=== PATIENT | female | born 1945 | race Caucasian/White ===

== ENCOUNTER → 2016-11-24 | Outpatient (CLI) | payer OTHER, MEDICARE | LOC: MOB LAB 11:57 | PROVIDERS: ATTEND Physician Assistant | DX: J02.9 Acute pharyngitis, unspecified (principal); F17.210 Nicotine dependence, cigarettes, uncomplicated | CPT/HCPCS: 87880; 99213; G0463 ==

== ENCOUNTER → 2016-12-15 | Outpatient (CLI) | payer OTHER, MEDICARE ==
[2016-12-15 09:04] LABS: LDL CHOLESTEROL,CALCULATED 131.4 mg/dL
[2016-12-15 09:23] LABS: ASPARTATE AMINO TRANSFERASE 21 IU/L (8-39); BILIRUBIN,TOTAL 0.5 mg/dL (0.3-1.2); BLOOD UREA NITROGEN 18 mg/dL (7-22); CALCIUM 9.6 mg/dL (8.7-10.7); CHLORIDE 101 meq/L (98-112); CREATININE 0.9 mg/dL (0.50-1.20); EST GLOMERULAR FILTRATION > 60 (>60 ml/min/1.73m(2)); GLUCOSE 111 mg/dL (78-110); POTASSIUM 4.9 meq/L (3.8-5.2); SODIUM 139 meq/L (135-145); TOTAL PROTEIN 6.9 g/dL (6.1-8.0)
== END ==
LOC: LAB 08:20
PROVIDERS: ATTEND Internal Medicine
DX: E78.5 Hyperlipidemia, unspecified (principal); I10 Essential (primary) hypertension; I25.10 Atherosclerotic heart disease of native coronary artery without angina pectoris; F17.210 Nicotine dependence, cigarettes, uncomplicated
CPT/HCPCS: 36415; 80053; 80061; 82550; 99214

== ENCOUNTER → 2017-06-14 | Outpatient (CLI) | payer OTHER, MEDICARE ==
[2017-06-14 08:55] LABS: BLOOD UREA NITROGEN 17 mg/dL (7-22); BUN/CREATININE RATIO 18.88 (6-20); CALCIUM 9.3 mg/dL (8.7-10.7); CHOL/HDL RATIO 3.32 RATIO (0-4.0); EST GLOMERULAR FILTRATION > 60 (>60 ml/min/1.73m(2)); HDL CHOLESTEROL 50 mg/dL (40-150); SERUM ALBUMIN 4.2 g/dL (3.5-4.8); SERUM CHOLESTEROL 166 mg/dL (120-200)
== END ==
LOC: LAB 08:05
PROVIDERS: ATTEND Internal Medicine
DX: E78.5 Hyperlipidemia, unspecified (principal); J43.2 Centrilobular emphysema; J45.909 Unspecified asthma, uncomplicated; R68.3 Clubbing of fingers; Z23 Encounter for immunization; F17.219 Nicotine dependence, cigarettes, with unspecified nicotine-induced disorders
CPT/HCPCS: 36415; 80053; 80061; 82550; 90732; 99214; G0463

== ENCOUNTER 2017-09-29 09:57 | Inpatient (IN) ==
[2017-09-29] MEDS ORDERED: ALBUTEROL SULFATE 2.5 MG/3 ML NEB ONE ×2 (10:08→10:21)
[2017-09-29] MEDS ORDERED: ONDANSETRON 4 MG/2 ML VIAL IVP ONE (10:10)
[2017-09-29] MEDS ORDERED: Sodium Chloride 0.9% 1,000 ML PRIMARY IV ONE (10:10)
[2017-09-29] MEDS ORDERED: KETOROLAC 15 MG/1 ML VIAL IVP ONE (10:10)
--- NOTE | 2017-09-29 10:18 | PDOC ---
Dyspnea HPI - General Chief Complaint: Dyspnea Stated Complaint: short of breath Date Seen by Provider: 09/29/17 Time Seen by Provider: 10:14 Source: POSITIVE: Patient Exam Limitations: POSITIVE: No limitations Treatment Prior to Arrival: REPORTS: Oxygen, Albuterol Neb Treatment Nurse's Notes Reviewed & Considered: Yes EMS Report Reviewed & Considered: Verbal - History of Present Illness Initial Comments: 72-year-old female complaining of shortness of breath and dizziness. Patient with cough, shortness of breath, dizziness, and headache. Her symptoms been ongoing since and his significantly gotten worse today. She presented to the medical office building where an EKG was done which showed ST depressions and she was sent here for further evaluation. While in route she received a DuoNeb nebulizer treatment. Her headache, she describes as the worst she's ever had, as though her head was in a vice radiating from the brow to her occiput. She denies sore throat, she does have a cough and shortness of breath. She denies any chest pain, no nausea vomiting or diarrhea, however she did have posttussive vomiting yesterday. She denies any hematuria or dysuria, no rashes. Body Location Affected: REPORTS: Head, Chest Timing: REPORTS: Constant Duration: Unknown Severity: Severe Quality: REPORTS: "Pain", Sharpness Initiating Event: REPORTS: Upper Respiratory Illness Context: REPORTS: Activity Exacerbated By: REPORTS: Coughing Associated Symptoms: REPORTS: Painful Breathing, Ankle Swelling Similar Symptoms Previously: Yes Recently seen/treated/hospitalized: Yes Any Prior Injuries Related to Current Complaint?: No - Patient Home Medications Home Medications: Home Medications Aspirin [Baby Aspirin] 81 mg PO DAILY 03/05/12 Cholecalciferol [Vitamin D] 1,000 unit PO QD #30 tab 01/16/14 Calcium Carbonate/Vitamin D3 [Calcium 600-Vit D3 200 Tablet] 1 ea PO BID #0 tab 05/23/14 B1/B2/Niacin/B12/Protease [B-Complex With B-12 Tablet] 1 ea PO QD tab 12/14/15 Oxybutynin Chloride 1 tab PO BID #180 tab 12/15/16 Metoprolol Tartrate 0.5 tab PO BID #180 tab 06/14/17 Rosuvastatin Calcium 1 tab PO QPM #90 tab 06/14/17 losartan 25 mg tablet 25 mg PO QD #90 tab 08/22/17 ipratropium-albuterol 0.5 mg-3 mg(2.5 mg base)/3 mL nebulization soln 3 ml INH ONCE #1 ml 09/29/17 - Patient Allergies Allergies/Adverse Reactions: Allergies 3 Allergy/AdvReac Type Severity Reaction Status Date / Time Penicillins Allergy HIVES Verified 09/29/17 10:11 Past Medical History - heen HEENT History: Cataracts Cardiovascular History: Previous TX Additional Cardiovasular History: STENTS X3 Respiratory History: Asthma, Pneumonia Gastrointestinal History: Other (please comment) Additional Gastrointestinal History: occasional diarrhea/nausea/vomiting approx q 2-3 mo Genitourinary History: Denies History Endocrine History: Denies History Musculoskeletal History: Denies History Prosthesis or Implant: No Neurological History: Denies History Blood Disorders: Denies History Psychiatric History: Denies History History of Sexually Transmitted Diseases: No Cancer History: Denies History History of MDRO: No History of Other Communicable Diseases: No Alcohol Use: Rarely In the Past 12 Months, Have Used or Abuse Any Substance: None Previous Surgical History: No Type / Date of Surgery: HYSTERECTOMY, CARDIAC STENTS X3 Anesthesia Reactions: No Malignant Hyperthermia: No Significant Family History: No pertinent family hx ROS - Limitations ROS Limitations: No Limitations Constitution: REPORTS: Denies Symptoms Cardiovascular: REPORTS: Denies Cardiac Symptoms Respiratory: REPORTS: Cough Non Productive, Hurts To Breathe, Shortness Of Breath Neurological: REPORTS: Headache Gastrointestinal: REPORTS: Nausea Endocrine: REPORTS: Denies Symptoms Musculoskeletal: REPORTS: Denies MS Symptoms Genitourinary: REPORTS: Denies Symptoms Eyes: REPORTS: Denies Symptoms ENT: REPORTS: Denies Symptoms Lympathic: REPORTS: Denies Lympathic Symptoms Immunologic: POSITIVE: Denies Symptoms Psychiatric: POSITIVE: Denies Psych Symptoms Dyspnea Physical Exam - General Appearance General Appearance: REPORTS: Alert, Cooperative, No Evidence of Trauma, Moderate Distress - HEENT HEENT: POSITIVE: Head Inspection Nml, Eyes Inspection Nml, Ears Inspection Nml, Nose Inspection Nml, Oral/Dental Inspect. Nml, Pharynx Inspect. Nml, PERRL, EOMI - Neck Neck: REPORTS: Normal Inspection - Respiratory Respiratory: REPORTS: No Pleuritic Chest Pain, Respiratory Distress, Wheezes, Prolonged Expirations, Dull on Percussion, Decreased Air Movement - Cardiovascular Cardiovascular: REPORTS: Regular Rate and Rhythm, Heart Sounds Normal, Equal Pulses, Strong Pulses, No Murmur, No Gallop, No Friction Rub, No JVD Peripheral Pulses: Radial (R): 3+, Radial (L): 3+ - Abdomen Abdomen: Soft: (All Quadrants), Normal Bowel Sounds: (All Quadrants), Denies Tenderness: (All Quadrants), No Splenomegaly: (All Quadrants), No Hepatomegaly: (All Quadrants), No Guarding: (All Quadrants), No Rebound: (All Quadrants), No Palpable Pulse: (All Quadrants), No Palpabale Mass: (All Quadrants), No Distention: (All Quadrants), No Rigidity: (All Quadrants) - Skin Skin: REPORTS: Intact, Normal For Race, Warm, Dry, No Rash - Extremities Extremity: Non-Tender: (All Extremities), Normal ROM: (All Extremities), Normal Inspection: (All Extremities), Pelvis Stable: (All Extremities) - Neurological / Psychological Neurological: POSITIVE: Oriented X3, Motor Normal, Sensation Normal Dyspnea Progress - Results Reviewed by me Xrays/CTs/US Reviewed by me: Yes Discussed with Radiologist: Yes Lab Results Reviewed by Me: Yes - Patient's Progress Re-Examine Time: 12:23 Status: POSITIVE: Improved Air Movement: POSITIVE: Fair Quality Measure Initiative: CP/AMI: POSITIVE: EKG - Consult Consult (If Yes, Name of Consulting MD & Time Called): Yes (Dr. Gomez, 12:20) Consulting MD will see pt:: POSITIVE: [facility] [place] Admit Counseled: POSITIVE: Patient, Family, RE: Lab Results, RE: Radiology Results, RE : DX Patient Care Time - Estimated PCT Patient Care Time (In Minutes): 30 Vital Signs - Recent Vital Signs Vital Signs: Vital Signs (Last 8 hours) Temp Pulse Pulse Resp BP Pulse Ox 09/29/17 10:38 97 22 93 09/29/17 10:37 96 22 93 09/29/17 09:58 97.4 F 68 18 144/66 90 - VS Reviewed Vital Signs Reviewed: Yes Discharge Clinical Impression: Bronchitis, Hypoxia, COPD exacerbation Discharge Disposition: Admit to Observation Condition: Stable Follow Up With: NONE,NONE [Primary Care Provider] -
[2017-09-29 10:57] LABS: MAGNESIUM 1.8 mg/dL (1.6-2.4)
[2017-09-29 11:03] LABS: VENOUS PH 7.42 (7.32-7.42)
[2017-09-29] MEDS ORDERED: FUROSEMIDE 10 MG/1 ML - 4 ML IVP ONE (11:50)
--- NOTE | 2017-09-29 12:03 | DI ---
CT HEAD SCAN WITHOUT IV CONTRAST, 09/29/2017 10:19 AM : Clinical History: Worst headache. Previous Exam: None at this facility. Scans are obtained from the foramen magnum to the vertex without IV contrast. The 4th, 3rd, and lateral ventricles are of normal size, shape, position, and contour for the patient 's age. There is no evidence of a subarachnoid hemorrhage or intraparenchymal hemorrhage. No bland in farct is identified. There is mild cerebral atrophy. There are no extracerebral mantles or shift of t he midline structures. Bone window evaluation is normal. The paranasal sinuses are normal. READIN. Normal non contrast CT head scan. 2. No definite subarachnoid hemorrhage is identified, but if a subarachnoid hemorrhage is suspected clinically, then a lumbar puncture is recommended. 3. Mild cerebral atrophy.
--- NOTE | 2017-09-29 12:11 | DI ---
PA /LATERAL CHEST X-RAY, 09/29/2017 10:10 AM : Clinical History: Shortness of breath. Cough. Previous Exam: 02/05/2015. There is no acute soft tissue or bony abnormality. Heart size is normal. No acute infiltrate or effus ion is present, but there is a chronic interstitial process present manifested by a reticulonodular p attern. There is "tram tracking" consistent with chronic bronchitis or bronchiectasis and interstitia l changes are more prevalent in both lower lung bases and therefore chronic aspiration pneumonitis ca nnot entirely be excluded. The soft tissues in the region of the location of the azygos vein or azygo s node is more prominent than before and adenopathy cannot be excluded. There is a roughly 10 mm dens ity overlying the right eighth rib posteriorly and the fifth rib anteriorly toward the lateral aspect of the chest. This density is not seen on the lateral film and it either represents a summation sam fact or a nodule. Readin. There is a chronic interstitial disease pattern present. This is stable since the last exam. 2. This patient has evidence of chronic bronchitis or bronchiectasis and with the increased intersti tial changes in both lung bases, chronic aspiration pneumonitis cannot be excluded. 3. There is a density on the PA film along the lateral chest wall in the mid lung field. This either represents an artifact or it may represent a true pulmonary nodule.
[2017-09-29] MEDS ORDERED: cefTRIAXone Inj 2 GM in Sodium Chloride 0.9% 100 ML IV ONE (12:22)
[2017-09-29] MEDS ORDERED: DEXAMETHASONE PF 10 MG/1 ML VIAL IVP ONE (12:22)
[2017-09-29] MEDS ORDERED: LIDOCAINE W/ SODIUM BICARB 0.5 ML SYR SUBD PRN (13:03)
[2017-09-29] MEDS ORDERED: ALBUTEROL SULFATE 2.5 MG/3 ML NEB PRN (13:03)
[2017-09-29] MEDS ORDERED: Influenza 17-18 Vaccine (6mo+) Quad 60mcg/0.5ml PF IM ONE (13:47)
[2017-09-29] MEDS: methylPREDNISolone 125 MG/2 ML VIAL IVP SCH ×2 (14:11→19:52)
[2017-09-29] MEDS: Sodium Chloride 0.9% 1,000 ML PRIMARY IV SCH ×2 (14:25→20:09)
[2017-09-29] MEDS: IPRATROPIUM/ALBUTEROL SULFATE 3 ML NEB NEB SCH ×2 (14:57→19:43)
--- NOTE | 2017-09-29 15:30 | DI ---
CT ANGIOGRAM OF THE CHEST, 09/29/2017 1:03 PM : Clinical History: Shortness of breath. Right midlung field pulmonary nodule. Previous Exam: 08/17/2015. Scans are performed from the base of the neck to the lower lung bases following IV administration of 75 mL of Isovue 300. Proprietary automated bolus tracking software was used to verify the timing of t he injection. The base of the neck and thoracic inlet are normal. There are no abnormal axillary or supraclavicular lymph nodes. There is adenopathy involving the superior mediastinal lymph nodes as well as both christine r and the subcarinal lymph nodes. The heart is normal. Coronary artery calcifications are present in the LAD and left circumflex artery. There is pulmonary arterial hypertension without evidence of pulm onary embolism or pulmonary embolism with infarction. There is no acute infiltrate or effusion. This patient has bullous emphysema with extensive chronic interstitial lung disease manifested by an exten sive amount of Radames A and Radames B lines. There is a calcified 4 mm granuloma in the right upper lo be laterally. There is a noncalcified nodule located in the right upper lobe anteriorly abutting the minor fissure and this was present before and has not changed and accounts for the density seen on th e chest x-ray. There is bronchiectasis in both lower lobes without definite evidence of chronic aspir ation pneumonitis. Both adrenal glands and the visualized portions of the liver and spleen are normal . READIN. There is no evidence of pulmonary embolism or pulmonary embolism with infarction. There is marked pulmonary arterial hypertension. 2. 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 There is mild bronchiectas is in both lower lobes without evidence of aspiration pneumonitis. 3. There are pleural-based densities in the right upper lobe abutting the minor fissure that have no t changed in 25 months indicating their benign. The largest density accounts for the nodule seen on t he chest x-ray.
--- NOTE | 2017-09-29 18:44 | PDOC ---
HPI - History of Present Illness Date and Time of Service: 09/29/2017, 1840 Chief Complaint: Shortness breath with cough History of Present Illness: This very pleasant 72-year-old female who has COPD and smokes who came in with the 2 month history of a cough with increasing shortness breath. The cough is intermittently been productive. She's never had a fever. She has had some chills. She states that she has not been able to smoke over the last 2 days but typically smokes about a pack to 2 packs per day. She has been to the clinic a couple times and was treated with antibiotics and steroids on one occasion and then steroids on another. Intermittently, things seem to get better but they've always persisted back to her worse. She does have some exposures to younger children, but she states that they've all been vaccinated in terms of her grandkids. She had the flu shot today, and has had Pneumovax within the last 12 months. Given the persistence of the cough, worsening shortness breath, the patient came in for evaluation. She was found to be hypoxic and placed on oxygen. She is not normally on oxygen. I did a CT scan which also shows bronchiectasis, no evidence of pulmonary emboli, and what appears to be pulmonary fibrosis. The patient was unaware of these diagnoses ceased. The patient went into the urgent care today and was sent over to the emergency room for further evaluation. She had a CBC and basic metabolic panel that were drawn there. Past Medical History Medical History: Hypertension, [place] in 2004, and hyperlipidemia, stress incontinence Surgical History: Bladder sling in 2007, colonoscopy in 2007, stents x3, hysterectomy, tonsillectomy, tubal ligation Family History: Reviewed an Not Pertinent Pertinent Family History: Father of emphysema and mother of congestive heart failure Past Social History: Smokes one to 2 packs per day, , has children that are described as healthy although her son does have diabetes. 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 Tobacco Use: Current Every Day Smoker Do you dip or chew tobacco: No In the Past 12 Months, Have Used or Abuse Any of the Following Substance: None Alcohol Use: None Medication / Allergies Home Medications: Home Medications Medication Instructions Recorded Confirmed Type Aspirin [Baby Aspirin] 81 mg PO DAILY 03/05/12 09/29/17 History Cholecalciferol [Vitamin D] 1,000 unit PO QD #30 tab 01/16/14 09/29/17 History Calcium Carbonate/Vitamin D3 1 ea PO BID #0 tab 05/23/14 09/29/17 Rx [Calcium 600-Vit D3 200 Tablet] B1/B2/Niacin/B12/Protease 1 ea PO QD tab 12/14/15 09/29/17 History [B-Complex With B-12 Tablet] Oxybutynin Chloride 1 tab PO BID #180 tab 12/15/16 09/29/17 Rx Metoprolol Tartrate 0.5 tab PO BID #180 tab 06/14/17 09/29/17 Rx Rosuvastatin Calcium 1 tab PO QPM #90 tab 06/14/17 09/29/17 Rx losartan 25 mg tablet 25 mg PO QD #90 tab 08/22/17 09/29/17 Rx ipratropium-albuterol 0.5 mg-3 3 ml INH ONCE #1 ml 09/29/17 09/29/17 Clinic mg(2.5 mg base)/3 mL nebulization soln Allergies/Adverse Reactions: Allergies 3 Allergy/AdvReac Type Severity Reaction Status Date / Time Penicillins Allergy HIVES Verified 09/29/17 10:11 Review of Systems - Review of Systems All Systems: Reviewed & No Additional Complaints Except as Stated (I did a 12 point review of systems and it is negative other than that discussed in the history of present illness. And that noted below.) - Genitourinary Genitourinary: REPORTS: Incontinence (Chronic urinary incontinence.) Exam - Vitals Vital Signs: Vital Signs Temperature 97 F Temperature Source Temporal Artery Scan Pulse Rate [Pulse Oximeter] 72 Pulse Rate 75 Respiratory Rate 22 Blood Pressure [Left Arm] 139/68 Blood Pressure 139/60 Pulse Ox 95 Oxygen Flow Rate 4 Oxygen Delivery Method Nasal Cannula Height 5 ft 2 in Weight 177 lb - General General Appearance: No Acute Distress, Cooperative Additional General Exam Details: Frequent dry cough on exam. - Head Head Exam: Normal Inspection, Normocephalic, Atraumatic - Eye Eye Exam: POSITIVE: No Scleral Icterus - ENT ENT Exam: POSITIVE: Mucous Membranes Moist - Neck Neck Exam: Normal Inspection, No Tenderness, No Lymphadenopathy, No Thyromegaly , JVP is not Raised - Respiratory Respiratory Exam: POSITIVE: Breathing Non Labored, Normal to Percussion and Palpation, Crackles (In the bases bilaterally), Coarse Breath Sounds Additional Respiratory Exam Details: Significant cough on exam as mentioned above - Cardiovascular Cardiovascular Exam: POSITIVE: RRR, No Murmur, No Clicks, No Gallops, No Rubs, No JVD - GI/Abdominal GI/Abdominal Exam: POSITIVE: Normal Bowel Sounds, Non Tender, Non Distended, Soft - Rectal Rectal Exam: POSITIVE: Deferred - External Exam: POSITIVE: Deferred Exam: POSITIVE: Deferred - Extremities Extremities Exam: POSITIVE: No Edema Present, No Cyanosis Present - Back Back Exam: POSITIVE: Normal Inspection, No CVA Tenderness - Neurological Neurological Exam: POSITIVE: Alert, Oriented x 3, No Facial Droop, Speech Intact / Clear, Moves All Extremities Equally Results - Labs Additional Lab Results: Laboratory Results 09/29/17 09/29/17 09/29/17 Range/Units 10:30 10:30 10:37 D-Dimer 0.47 (0.00-0.59) mg/L VBG pH 7.42 (7.32-7.42) VBG pCO2 42 L (45-55) mmHg VBG HCO3 27 H (22-26) mmol/L VBG Base Excess 3 H (-2-2) MMOL/L Lactic Acid 1.4 (0.70-2.10) MMOL/L Magnesium 1.8 (1.6-2.4) mg/dL C-Reactive Protein 4.9 H (0.0-0.9) mg/dL I reviewed the CBC and a basic metabolic panel from the lab for the clinic visit earlier today. Assessment and Plan - Patient Problems (1) COPD exacerbation Current Visit: Yes Status: Acute Code(s): J44.1 - Chronic obstructive pulmonary disease with (acute) exacerbation (2) Pulmonary fibrosis Current Visit: Yes Status: Acute Code(s): J84.10 - Pulmonary fibrosis, unspecified (3) Bronchiectasis Current Visit: Yes Status: Acute Code(s): J47.9 - Bronchiectasis, uncomplicated Qualifiers: Bronchiectasis type: with acute exacerbation Qualified Code(s): J47.1 - Bronchiectasis with (acute) exacerbation (4) Coronary artery disease Current Visit: Yes Status: Acute Code(s): I25.10 - Atherosclerotic heart disease of [place] coronary artery without angina pectoris Qualifiers: Coronary Disease-Associated Artery/Lesion type: [place] artery [place] vs. transplanted heart: [place] heart Associated angina: without angina Qualified Code(s): I25.10 - Atherosclerotic heart disease of [place] coronary artery without angina pectoris (5) Tobacco abuse Current Visit: Yes Status: Acute Code(s): Z72.0 - Tobacco use (6) Urinary incontinence Current Visit: Yes Status: Acute Code(s): R32 - Unspecified urinary incontinence Qualifiers: Urinary Incontinence type: unspecified incontinence Qualified Code(s): R32 - Unspecified urinary incontinence (7) Hypercholesterolemia Current Visit: Yes Status: Acute Code(s): E78.00 - Pure hypercholesterolemia , unspecified - Assessment / Plan Additional Assessment/Plan Details: Admit the patient. IV antibiotics/steroids/breathing therapies/oxygen Benadryl ahead and check for aspergillosis as well as possible pertussis. The patient states that her last Tdap within the last 6 years. Check labs tomorrow. Monitor for any arrhythmias over the first 24 hours at least. IV fluids. I think given the bronchiectasis, I think the patient would benefit from proton pump inhibitor and I'll put that on board as well. Smoking cessation. I spent a significant amount of time discussing and counseling on smoking cessation and options for that. Full code. This with the patient. She does not want any long-term extraneous ventilatory care or care above and beyond normal means. She does want an attempt at her heart beating again should stop. This was discussed with the patient with her sister at bedside as well. Patient needs a pulmonology consultation probably with [facility] hospital stay. Plan above discussed with patient and she agreed
[2017-09-29] MEDS: GUAIFENESIN/CODEINE SYRUP 100 MG/ 10 MG/ 5 ML UD CUP PO PRN (19:52)
[2017-09-29] MEDS: Pantoprazole Inj 40 MG in Normal Saline Flush 10 ML IVP SCH (19:52)
[2017-09-29] MEDS: BENZONATATE 100 MG CAPSULE PO SCH (20:04)
[2017-09-29] MEDS: Metoprolol TARTRATE Tab 50 MG TAB PO SCH (20:04)
[2017-09-29] MEDS: Rosuvastatin Tab 20 MG TAB PO SCH (20:05)
[2017-09-30] MEDS: methylPREDNISolone 125 MG/2 ML VIAL IVP SCH ×4 (01:21→18:47)
[2017-09-30] MEDS: Sodium Chloride 0.9% 1,000 ML PRIMARY IV SCH ×3 (04:42→12:54)
[2017-09-30] MEDS: IPRATROPIUM/ALBUTEROL SULFATE 3 ML NEB NEB SCH ×4 (06:03→19:35)
[2017-09-30] MEDS: Pantoprazole Inj 40 MG in Normal Saline Flush 10 ML IVP SCH ×2 (06:40→18:46)
[2017-09-30] MEDS: NORMAL SALINE 10 ML SYRINGE FLUSH IVP PRN (06:41)
[2017-09-30 07:25] LABS: BLOOD UREA NITROGEN 20 mg/dL (7-22); BUN/CREATININE RATIO 28.57 (6-20)
[2017-09-30 07:53] LABS: BASOPHILS % (AUTO) 0.3 % (0-1); EOSINOPHILS % (AUTO) 0.9 % (0-8); Hematocrit [HCT] 39.1 % (37.0-47.0); LYMPHOCYTES # (AUTO) 1.66 10*3/uL; MEAN CORPUSCULAR HEMOGLOBIN 30.5 PG (27-31); MEAN CORPUSCULAR HGB CONC 33.2 g/dL (33-37); MEAN CORPUSCULAR VOLUME 92 FL (81-99); MEAN PLATELET VOLUME 7.2 FL (7.4-12.2); MONOCYTES # (AUTO) 0.41 10*3/UL (0.3-0.8); MONOCYTES % (AUTO) 3.5 % (5-15); NEUTROPHILS # (AUTO) 9.46 10*3/UL; NEUTROPHILS % (AUTO) 81.1 % (50-80); RED BLOOD COUNT 4.26 10^6/uL (4.20-5.40)
[2017-09-30 07:54] LABS: BASOPHILS # (AUTO) 0.03 10*3/UL; PLATELET MORPHOLOGY COMMENT NORMAL MORPHOLOGY (NORM); RBC MORPHOLOGY COMMENT NORMAL MORPHOLOGY (NORM); WBC MORPHOLOGY COMMENT NORMAL MORPHOLOGY (NORM)
[2017-09-30] MEDS: LOSARTAN 25 MG TABLET PO SCH (08:13)
[2017-09-30] MEDS: Oxybutynin ER Tab 5 MG TAB PO SCH ×2 (08:13→20:02)
[2017-09-30] MEDS: ASPIRIN 81 MG (BABY) CHEWABLE TABLET PO SCH (08:13)
[2017-09-30] MEDS: CHOLECALCIFEROL 1000 IU TABLET PO SCH (08:14)
[2017-09-30] MEDS: ENOXAPARIN SODIUM 40 MG/0.4 ML SYRINGE SUBCUT SCH (08:14)
[2017-09-30] MEDS: Metoprolol TARTRATE Tab 50 MG TAB PO SCH ×2 (08:14→20:02)
[2017-09-30] MEDS: BENZONATATE 100 MG CAPSULE PO SCH ×3 (08:14→20:02)
[2017-09-30] MEDS: cefTRIAXone Inj 2 GM in Sodium Chloride 0.9% 100 ML IV SCH (11:57)
[2017-09-30] MEDS ORDERED: Sodium Chloride 0.9% 100 ML IV ONE (11:57)
[2017-09-30] MEDS ORDERED: CEFTRIAXONE SODIUM 2 GM VIAL IV ONE (11:57)
[2017-09-30] MEDS ORDERED: cefTRIAXone Inj 2 GM in Sodium Chloride 0.9% 100 ML IV ONE (12:00)
--- NOTE | 2017-09-30 16:34 | PDOC(PROG) ---
Date and Time of Service: 09/30/2017,1632 Interval History: no chest pain today. cough improved some. no nausea or vomiting. still on about 4 LPM oxygen Objective : Data - Labs CBC and BMP: 09/30/17 06:11 09/30/17 06:11 Additional Lab Results: Laboratory Results 09/29/17 09/29/17 09/29/17 Range/Units 10:30 10:30 10:37 WBC (4.8-10.8) 10^3/uL RBC (4.20-5.40) 10^6/uL Hgb (12.0-16.0) g/dL Hct (37.0-47.0) % MCV (81-99) FL MCH (27-31) PG MCHC (33-37) g/dL RDW Coeff of [place] (11.5-14.5) % Plt Count (140-350) 10*3/uL MPV (7.4-12.2) FL Neut % (Auto) (50-80) % Lymph % (Auto) (10-50) % [place] % (Auto) (5-15) % Eos % (Auto) (0-8) % Baso % (Auto) (0-1) % Neut # (Auto) 10*3/UL Lymph # (Auto) 10*3/uL [place] # (Auto) (0.3-0.8) 10*3/UL Eos # (Auto) 10*3/UL Baso # (Auto) 10*3/UL WBC Morphology Comment (NORM) Plt Morphology Comment (NORM) RBC Morph Comment (NORM) D-Dimer 0.47 (0.00-0.59) mg/L VBG pH 7.42 (7.32-7.42) VBG pCO2 42 L (45-55) mmHg VBG HCO3 27 H (22-26) mmol/L VBG Base Excess 3 H (-2-2) MMOL/L Sodium (135-145) meq/L Potassium (3.8-5.2) meq/L Chloride (98-112) meq/L Carbon Dioxide (23-33) meq/L Anion Gap (5-20) BUN (7-22) mg/dL Creatinine (0.50-1.20) mg/dL Estimated GFR (>60 ml/min/1.73m(2)) BUN/Creatinine Ratio (6-20) Glucose (78-110) mg/dL Calculated Osmolality (267-292) mOsm/kg Lactic Acid 1.4 (0.70-2.10) MMOL/L Calcium (8.7-10.7) mg/dL Magnesium 1.8 (1.6-2.4) mg/dL C-Reactive Protein 4.9 H (0.0-0.9) mg/dL 09/30/17 09/30/17 Range/Units 06:11 06:11 WBC 11.7 H (4.8-10.8) 10^3/uL RBC 4.26 (4.20-5.40) 10^6/uL Hgb 13.0 (12.0-16.0) g/dL Hct 39.1 (37.0-47.0) % MCV 92 (81-99) FL MCH 30.5 (27-31) PG MCHC 33.2 (33-37) g/dL RDW Coeff of [place] 12.5 (11.5-14.5) % Plt Count 242 (140-350) 10*3/uL MPV 7.2 L (7.4-12.2) FL Neut % (Auto) 81.1 H (50-80) % Lymph % (Auto) 14.2 (10-50) % [place] % (Auto) 3.5 L (5-15) % Eos % (Auto) 0.9 (0-8) % Baso % (Auto) 0.3 (0-1) % Neut # (Auto) 9.46 10*3/UL Lymph # (Auto) 1.66 10*3/uL [place] # (Auto) 0.41 (0.3-0.8) 10*3/UL Eos # (Auto) 0.10 10*3/UL Baso # (Auto) 0.03 10*3/UL WBC Morphology Comment Normal morphology (NORM) Plt Morphology Comment Normal morphology (NORM) RBC Morph Comment Normal morphology (NORM) D-Dimer (0.00-0.59) mg/L VBG pH (7.32-7.42) VBG pCO2 (45-55) mmHg VBG HCO3 (22-26) mmol/L VBG Base Excess (-2-2) MMOL/L Sodium 143 (135-145) meq/L Potassium 4.2 (3.8-5.2) meq/L Chloride 104 (98-112) meq/L Carbon Dioxide 27 (23-33) meq/L Anion Gap 12 (5-20) BUN 20 (7-22) mg/dL Creatinine 0.7 (0.50-1.20) mg/dL Estimated GFR > 60 (>60 ml/min/1.73m(2)) BUN/Creatinine Ratio 28.57 H (6-20) Glucose 191 H (78-110) mg/dL Calculated Osmolality 303.0 H (267-292) mOsm/kg Lactic Acid (0.70-2.10) MMOL/L Calcium 9.0 (8.7-10.7) mg/dL Magnesium (1.6-2.4) mg/dL C-Reactive Protein (0.0-0.9) mg/dL Objective : Exam - General General Appearance: No Acute Distress, Cooperative Additional General Exam Details: Vital Signs (24 hrs) Temp Pulse Pulse Resp BP Pulse Ox 09/30/17 15:00 84 09/30/17 14:57 68 18 09/30/17 14:56 67 18 93 09/30/17 13:00 97.8 F 82 22 156/71 95 09/30/17 11:00 59 L 09/30/17 10:36 58 L 18 09/30/17 10:35 59 L 18 93 09/30/17 07:01 97.2 F 76 18 127/71 92 09/30/17 07:00 69 09/30/17 06:04 67 18 09/30/17 06:03 67 18 98 09/30/17 05:20 93 09/30/17 04:11 97.7 F 81 16 134/68 99 09/30/17 03:00 77 09/30/17 01:00 97.3 F 62 16 128/60 94 09/29/17 23:00 55 L 09/29/17 20:17 97.5 F 20 129/61 95 09/29/17 19:44 78 14 100 09/29/17 19:43 72 16 96 09/29/17 19:00 70 72 20 09/29/17 16:59 97 F 72 22 139/68 95 - Eye Eye Exam: No Scleral Icterus - ENT ENT Exam: Mucous Membranes Moist - Respiratory Respiratory Exam: Breathing Non Labored, Crackles, Wheezes, Coarse Breath Sounds - Cardiovascular Cardiovascular Exam: RRR, No Murmur, No Clicks, No Gallops, No Rubs, No JVD - GI/Abdominal GI/Abdominal Exam: Normal Bowel Sounds, Non Tender, Non Distended, Soft - Extremities Extremities Exam: No Edema Present, No Cyanosis Present - Neurological Neurological Exam: Alert, Oriented x 3, No Facial Droop, Speech Intact / Clear, Moves All Extremities Equally Assessment and Plan - Patient Problems (1) COPD exacerbation Current Visit: Yes Status: Acute Code(s): J44.1 - Chronic obstructive pulmonary disease with (acute) exacerbation (2) Pulmonary fibrosis Current Visit: Yes Status: Acute Code(s): J84.10 - Pulmonary fibrosis, unspecified (3) Bronchiectasis Current Visit: Yes Status: Acute Code(s): J47.9 - Bronchiectasis, uncomplicated Qualifiers: Bronchiectasis type: with acute exacerbation Qualified Code(s): J47.1 - Bronchiectasis with (acute) exacerbation (4) Coronary artery disease Current Visit: Yes Status: Acute Code(s): I25.10 - Atherosclerotic heart disease of [place] coronary artery without angina pectoris Qualifiers: Coronary Disease-Associated Artery/Lesion type: [place] artery [place] vs. transplanted heart: [place] heart Associated angina: without angina Qualified Code(s): I25.10 - Atherosclerotic heart disease of [place] coronary artery without angina pectoris (5) Tobacco abuse Current Visit: Yes Status: Acute Code(s): Z72.0 - Tobacco use (6) Urinary incontinence Current Visit: Yes Status: Acute Code(s): R32 - Unspecified urinary incontinence Qualifiers: Urinary Incontinence type: unspecified incontinence Qualified Code(s): R32 - Unspecified urinary incontinence (7) Hypercholesterolemia Current Visit: Yes Status: Acute Code(s): E78.00 - Pure hypercholesterolemia , unspecified - Assessment / Plan Additional Assessment/Plan Details: Complex lung issues with COPD exacerbation, bronchiectasis with infection, and pulmonary fibrosis. At this point however I think we can stop fluids and telemetry monitoring. I think the patient needs an extended course of steroids perhaps upwards of a month or longer. Antibiotics to continue IV for now, hopefully to by mouth and the next day or 2. Breathing therapies. Continue PPI the IV, and convert to by mouth in a couple days. The patient would likely benefit from a [facility] pulmonary consultation. This can be done as an outpatient. I spoke with the patient's and the patient regarding this patient's , Rick, can be reached at [phone]
[2017-09-30] MEDS: Rosuvastatin Tab 20 MG TAB PO SCH (20:02)
[2017-09-30] MEDS: GUAIFENESIN/CODEINE SYRUP 100 MG/ 10 MG/ 5 ML UD CUP PO PRN (20:03)
[2017-10-01] MEDS: methylPREDNISolone 125 MG/2 ML VIAL IVP SCH ×4 (01:02→21:28)
[2017-10-01 06:42] LABS: BLOOD UREA NITROGEN 21 mg/dL (7-22); MAGNESIUM 2.3 mg/dL (1.6-2.4)
[2017-10-01] MEDS: IPRATROPIUM/ALBUTEROL SULFATE 3 ML NEB NEB SCH ×4 (06:51→18:53)
[2017-10-01 06:57] LABS: BAND NEUTROPHILS % 0 % (0-10); BASOPHILS % (MANUAL) 0 % (0-1); EOSINOPHILS % (MANUAL) 0 % (0-8); Hematocrit [HCT] 37.9 % (37.0-47.0); Hemoglobin [HGB] 12.5 g/dL (12.0-16.0); MEAN CORPUSCULAR HEMOGLOBIN 30.5 PG (27-31); MEAN CORPUSCULAR VOLUME 92 FL (81-99); MEAN PLATELET VOLUME 7.4 FL (7.4-12.2); MONOCYTES % (MANUAL) 6 % (0-12); NEUTROPHILS % (MANUAL) 82 % (50-80); PLATELET MORPHOLOGY COMMENT NORMAL MORPHOLOGY (NORM); RBC MORPHOLOGY COMMENT NORMAL MORPHOLOGY (NORM); RED BLOOD COUNT 4.11 10^6/uL (4.20-5.40); WBC MORPHOLOGY COMMENT NORMAL MORPHOLOGY (NORM)
[2017-10-01] MEDS: NORMAL SALINE 10 ML SYRINGE FLUSH IVP PRN (07:19)
[2017-10-01] MEDS: Pantoprazole Inj 40 MG in Normal Saline Flush 10 ML IVP SCH (07:19)
[2017-10-01] MEDS: ENOXAPARIN SODIUM 40 MG/0.4 ML SYRINGE SUBCUT SCH (08:25)
[2017-10-01] MEDS: BENZONATATE 100 MG CAPSULE PO SCH ×3 (08:25→21:26)
[2017-10-01] MEDS: CHOLECALCIFEROL 1000 IU TABLET PO SCH (08:25)
[2017-10-01] MEDS: LOSARTAN 25 MG TABLET PO SCH (08:25)
[2017-10-01] MEDS: Metoprolol TARTRATE Tab 50 MG TAB PO SCH ×2 (08:25→21:25)
[2017-10-01] MEDS: ASPIRIN 81 MG (BABY) CHEWABLE TABLET PO SCH (08:25)
[2017-10-01] MEDS: Oxybutynin ER Tab 5 MG TAB PO SCH ×2 (08:25→21:26)
--- NOTE | 2017-10-01 12:04 | PDOC(PROG) ---
Date and Time of Service: 09/30/2017, 1158 Interval History: No chest pain. cough improving, but some paroxysms. no nausea or vomiting. overall, feeling better. breathing therapies really help. Objective : Data - Labs CBC and BMP: 10/01/17 06:11 10/01/17 06:11 Objective : Exam - General General Appearance: No Acute Distress, Cooperative Additional General Exam Details: Vital Signs (24 hrs) Temp Pulse Pulse Resp BP Pulse Ox 10/01/17 10:07 88 18 94 10/01/17 10:06 87 18 94 10/01/17 08:18 97.1 F 99 24 164/70 95 10/01/17 06:52 87 18 96 10/01/17 06:51 86 18 93 10/01/17 05:35 95 10/01/17 04:49 97.5 F 78 20 145/82 96 10/01/17 01:00 97.1 F 68 16 128/60 97 09/30/17 20:19 98.8 F 89 20 153/66 95 09/30/17 19:36 73 16 100 09/30/17 19:35 70 18 95 09/30/17 18:56 60 09/30/17 16:55 98.9 F 77 20 131/54 93 09/30/17 15:00 84 09/30/17 14:57 68 18 09/30/17 14:56 67 18 93 09/30/17 13:00 97.8 F 82 22 156/71 95 - Head Head Exam: Normal Inspection, Normocephalic, Atraumatic - Eye Eye Exam: No Scleral Icterus - ENT ENT Exam: Mucous Membranes Moist - Respiratory Respiratory Exam: Breathing Non Labored, Crackles, Wheezes, Coarse Breath Sounds - Cardiovascular Cardiovascular Exam: RRR, No Murmur, No Clicks, No Gallops, No Rubs, No JVD - GI/Abdominal GI/Abdominal Exam: Normal Bowel Sounds, Non Tender, Non Distended, Soft - Extremities Extremities Exam: No Clubbing Present, No Cyanosis Present, +1 Edema - Neurological Neurological Exam: Alert, Oriented x 3, No Facial Droop, Speech Intact / Clear, Moves All Extremities Equally - Psychiatric Psychiatric Exam: Normal Affect, Normal Mood Assessment and Plan - Patient Problems (1) COPD exacerbation Current Visit: Yes Status: Acute Code(s): J44.1 - Chronic obstructive pulmonary disease with (acute) exacerbation (2) Pulmonary fibrosis Current Visit: Yes Status: Acute Code(s): J84.10 - Pulmonary fibrosis, unspecified (3) Bronchiectasis Current Visit: Yes Status: Acute Code(s): J47.9 - Bronchiectasis, uncomplicated Qualifiers: Bronchiectasis type: with acute exacerbation Qualified Code(s): J47.1 - Bronchiectasis with (acute) exacerbation (4) Coronary artery disease Current Visit: Yes Status: Acute Code(s): I25.10 - Atherosclerotic heart disease of [place] coronary artery without angina pectoris Qualifiers: Coronary Disease-Associated Artery/Lesion type: [place] artery [place] vs. transplanted heart: [place] heart Associated angina: without angina Qualified Code(s): I25.10 - Atherosclerotic heart disease of [place] coronary artery without angina pectoris (5) Tobacco abuse Current Visit: Yes Status: Acute Code(s): Z72.0 - Tobacco use (6) Urinary incontinence Current Visit: Yes Status: Acute Code(s): R32 - Unspecified urinary incontinence Qualifiers: Urinary Incontinence type: unspecified incontinence Qualified Code(s): R32 - Unspecified urinary incontinence (7) Hypercholesterolemia Current Visit: Yes Status: Acute Code(s): E78.00 - Pure hypercholesterolemia , unspecified - Assessment / Plan Additional Assessment/Plan Details: continue steroids, but reduce the dose; may keep on for longer taper oxygen 24/7, at 2 LPM change antibiotics to PO change PPI to PO smoking cessation, discussed every day thus far check for influenza awaiting aspergillosis and pertussis studies possibly home tomorrow
[2017-10-01] MEDS: cefTRIAXone Inj 2 GM in Sodium Chloride 0.9% 100 ML IV SCH (12:58)
[2017-10-01] MEDS: PANTOPRAZOLE 40 MG TABLET PO SCH (17:14)
[2017-10-01] MEDS: Rosuvastatin Tab 20 MG TAB PO SCH (21:25)
[2017-10-01] MEDS: CEFUROXIME 500 MG TABLET PO SCH (21:25)
[2017-10-02] MEDS: methylPREDNISolone 125 MG/2 ML VIAL IVP SCH ×2 (01:11→08:59)
[2017-10-02 06:37] LABS: HEMOGLOBIN A1C 6.86 % (4.2-6.0)
[2017-10-02] MEDS: IPRATROPIUM/ALBUTEROL SULFATE 3 ML NEB NEB SCH ×3 (06:49→15:06)
[2017-10-02 06:52] LABS: Hematocrit [HCT] 34.7 % (37.0-47.0); Hemoglobin [HGB] 11.8 g/dL (12.0-16.0); MEAN CORPUSCULAR HGB CONC 34.1 g/dL (33-37); MEAN CORPUSCULAR VOLUME 91 FL (81-99); MEAN PLATELET VOLUME 7.3 FL (7.4-12.2); PLATELET MORPHOLOGY COMMENT NORMAL MORPHOLOGY (NORM); RBC MORPHOLOGY COMMENT NORMAL MORPHOLOGY (NORM); RED BLOOD COUNT 3.82 10^6/uL (4.20-5.40); WBC MORPHOLOGY COMMENT NORMAL MORPHOLOGY (NORM)
[2017-10-02 06:53] LABS: BAND NEUTROPHILS % 2 % (0-10); BASOPHILS % (MANUAL) 0 % (0-1); EOSINOPHILS % (MANUAL) 0 % (0-8); MONOCYTES % (MANUAL) 2 % (0-12); NEUTROPHILS % (MANUAL) 77 % (50-80)
[2017-10-02] MEDS: PANTOPRAZOLE 40 MG TABLET PO SCH (07:36)
[2017-10-02] MEDS: Metoprolol TARTRATE Tab 50 MG TAB PO SCH (08:59)
[2017-10-02] MEDS: ENOXAPARIN SODIUM 40 MG/0.4 ML SYRINGE SUBCUT SCH (08:59)
[2017-10-02] MEDS ORDERED: AZITHROMYCIN 250 MG TABLET PO SCH (09:00)
[2017-10-02] MEDS: CEFUROXIME 500 MG TABLET PO SCH (09:00)
[2017-10-02] MEDS: CHOLECALCIFEROL 1000 IU TABLET PO SCH (09:00)
[2017-10-02] MEDS: BENZONATATE 100 MG CAPSULE PO SCH (09:00)
[2017-10-02] MEDS: Oxybutynin ER Tab 5 MG TAB PO SCH (09:00)
[2017-10-02] MEDS: LOSARTAN 25 MG TABLET PO SCH (09:00)
[2017-10-02] MEDS: ASPIRIN 81 MG (BABY) CHEWABLE TABLET PO SCH (09:01)
[2017-10-02] MEDS: NORMAL SALINE 10 ML SYRINGE FLUSH IVP PRN (09:03)
[2017-10-02 11:05] VITALS: RESP 18
[2017-10-02 11:17] VITALS: BP 154/64; TEMP 97.1
--- NOTE | 2017-10-02 13:27 | DCSUMMARY ---
Hospitalization Summary Admit Date: 09/29/17 Discharge Date: 10/02/17 Primary Diagnosis:: COPD exacerbation, Secondary Diagnosis:: Pulmonary fibrosis, bronchiectasis, and new onset/ Newly diagnosed diabetes mellitus type II. Hospital Course: This very pleasant 72-year-old female who came in with severe shortness of breath over about a 2 month period of time, but worse over the last couple weeks , consistent with worsening COPD exacerbation. She was admitted for evaluation and management. She is placed on oxygen, breathing therapies were started, and she is placed on antibiotics and steroids. She seems to be tolerating therapy very well and states that she 75% better than when she first came in the hospital and feels that she can manage at home. She is placed on Ceftin and prednisone for 2 week taper. She may need to repeat this if her cough persists or worsens in the next 2 months. We've also placed her on albuterol and Advair. In terms of her workup, the CT scans revealed that she has bronchiectasis as well as pulmonary fibrosis. I think she would benefit from a workup at [facility] but I also advised her to quit smoking. We discussed smoking cessation every day during the hospital stay. In addition, we found that the patient is early diabetes with a hemoglobin A1c of 6.86. For now, give the patient dietary education and I think that should be rechecked in about 3 months to 6 months. We worked very hard at smoking cessation. Today, shortness breath is significantly improved, cough is significantly improved. No nausea or vomiting and the patient is ready to go home. Assessment and Plan: 1. As per discharge assessments noted 2. Disposition: Patient is discharged home. 3. Condition on discharge, stable and improved. 4. Diet: regular diet 5. Activities: resume normal activities, but continue to quit smoking 6. Follow-Up: 1. Dr. Madera in one week 2. 7. Medications at the Time of Discharge: Home Medications Medication Instructions Recorded Confirmed Type Aspirin [Baby Aspirin] 81 mg PO DAILY 03/05/12 09/29/17 History Cholecalciferol [Vitamin D] 1,000 unit PO QD #30 tab 01/16/14 09/29/17 History Calcium Carbonate/Vitamin D3 1 ea PO BID #0 tab 05/23/14 09/29/17 Rx [Calcium 600-Vit D3 200 Tablet] B1/B2/Niacin/B12/Protease 1 ea PO QD tab 12/14/15 09/29/17 History [B-Complex with B-12 Tablet] Oxybutynin Chloride 1 tab PO BID #180 tab 12/15/16 09/29/17 Rx Metoprolol Tartrate 0.5 tab PO BID #180 tab 06/14/17 09/29/17 Rx Rosuvastatin Calcium 1 tab PO QPM #90 tab 06/14/17 09/29/17 Rx losartan 25 mg tablet 25 mg PO QD #90 tab 08/22/17 09/29/17 Rx Albuterol [PROVENTIL HFA] 1 - 2 inh IH .Q4-6H PRN #1 inhaler 10/02/17 Rx Cefuroxime Axetil [Ceftin] 500 mg PO BID #6 tab 10/02/17 Rx Fluticasone/Salmeterol [Advair 1 ea IH BID #1 blst.w.dev 10/02/17 Rx 500-50 Diskus] Pantoprazole Sodium [Protonix] 40 mg PO BID AC #60 tab 10/02/17 Rx Prednisone 10 mg PO DAILY #30 tab 10/02/17 Rx 8. Time, care, counseling and coordination of care for this discharge is greater than 30 minutes. Exam - Vitals Vital Signs: Vital Signs Temperature 97.1 F Temperature Source Temporal Artery Scan Pulse Rate [Apical] 80 Pulse Rate [Pulse Oximeter] 65 Pulse Rate 76 Respiratory Rate 18 Blood Pressure [Left Arm] 154/64 Blood Pressure 139/60 Pulse Ox 97 Oxygen Flow Rate 2.5 Oxygen Delivery Method Nasal Cannula Height 5 ft 2 in Weight 186 lb 6.4 oz - General General Appearance: No Acute Distress, Cooperative - Eye Eye Exam: POSITIVE: No Scleral Icterus - ENT ENT Exam: POSITIVE: Mucous Membranes Moist - Respiratory Respiratory Exam: POSITIVE: Breathing Non Labored, Crackles (In bases bilaterally), Wheezes, Coarse Breath Sounds - Cardiovascular Cardiovascular Exam: POSITIVE: RRR, No Murmur, No Clicks, No Gallops, No Rubs, No JVD - GI/Abdominal GI/Abdominal Exam: POSITIVE: Normal Bowel Sounds, Non Tender, Non Distended, Soft - Extremities Extremities Exam: POSITIVE: No Cyanosis Present, Clubbing Present (In the digits ), +1 Edema - Neurological Neurological Exam: POSITIVE: Alert, Oriented x 3, No Facial Droop, Speech Intact / Clear, Moves All Extremities Equally Data Perinent Studies: Laboratory Results 09/29/17 09/29/17 09/29/17 Range/Units 10:30 10:30 10:37 WBC (4.8-10.8) 10^3/uL RBC (4.20-5.40) 10^6/uL Hgb (12.0-16.0) g/dL Hct (37.0-47.0) % MCV (81-99) FL MCH (27-31) PG MCHC (33-37) g/dL RDW Coeff of Sravani (11.5-14.5) % Plt Count (140-350) 10*3/uL MPV (7.4-12.2) FL Neut % (Auto) (50-80) % Lymph % (Auto) (10-50) % [place] % (Auto) (5-15) % Eos % (Auto) (0-8) % Baso % (Auto) (0-1) % Neut # (Auto) 10*3/UL Lymph # (Auto) 10*3/uL [place] # (Auto) (0.3-0.8) 10*3/UL Eos # (Auto) 10*3/UL Baso # (Auto) 10*3/UL Neutrophils % (Manual) (50-80) % Band Neutrophils % (0-10) % Lymphocytes % (Manual) (10-50) % Monocytes % (Manual) (0-12) % Eosinophils % (Manual) (0-8) % Basophils % (Manual) (0-1) % Metamyelocytes % Myelocytes % Promyelocytes % Blast Cells WBC Morphology Comment (NORM) Plt Morphology Comment (NORM) RBC Morph Comment (NORM) D-Dimer 0.47 (0.00-0.59) mg/L VBG pH 7.42 (7.32-7.42) VBG pCO2 42 L (45-55) mmHg VBG HCO3 27 H (22-26) mmol/L VBG Base Excess 3 H (-2-2) MMOL/L Sodium (135-145) meq/L Potassium (3.8-5.2) meq/L Chloride (98-112) meq/L Carbon Dioxide (23-33) meq/L Anion Gap (5-20) BUN (7-22) mg/dL Creatinine (0.50-1.20) mg/dL Estimated GFR (>60 ml/min/1.73m(2)) BUN/Creatinine Ratio (6-20) Glucose (78-110) mg/dL Mean Blood Glucose mg/dL Hemoglobin A1c (4.2-6.0) % Calculated Osmolality (267-292) mOsm/kg Lactic Acid 1.4 (0.70-2.10) MMOL/L Calcium (8.7-10.7) mg/dL Magnesium 1.8 (1.6-2.4) mg/dL C-Reactive Protein 4.9 H (0.0-0.9) mg/dL 09/30/17 09/30/17 10/01/17 Range/Units 06:11 06:11 06:11 WBC 11.7 H 13.8 H (4.8-10.8) 10^3/uL RBC 4.26 4.11 L (4.20-5.40) 10^6/uL Hgb 13.0 12.5 (12.0-16.0) g/dL Hct 39.1 37.9 (37.0-47.0) % MCV 92 92 (81-99) FL MCH 30.5 30.5 (27-31) PG MCHC 33.2 33.0 (33-37) g/dL RDW Coeff of Sravani 12.5 12.6 (11.5-14.5) % Plt Count 242 247 (140-350) 10*3/uL MPV 7.2 L 7.4 (7.4-12.2) FL Neut % (Auto) 81.1 H (50-80) % Lymph % (Auto) 14.2 (10-50) % [place] % (Auto) 3.5 L (5-15) % Eos % (Auto) 0.9 (0-8) % Baso % (Auto) 0.3 (0-1) % Neut # (Auto) 9.46 10*3/UL Lymph # (Auto) 1.66 10*3/uL [place] # (Auto) 0.41 (0.3-0.8) 10*3/UL Eos # (Auto) 0.10 10*3/UL Baso # (Auto) 0.03 10*3/UL Neutrophils % (Manual) 82 H (50-80) % Band Neutrophils % 0 (0-10) % Lymphocytes % (Manual) 12 (10-50) % Monocytes % (Manual) 6 (0-12) % Eosinophils % (Manual) 0 (0-8) % Basophils % (Manual) 0 (0-1) % Metamyelocytes % Not Reportable Myelocytes % Not Reportable Promyelocytes % Not Reportable Blast Cells Not Reportable WBC Morphology Comment Normal morphology Normal morphology (NORM) Plt Morphology Comment Normal morphology Normal morphology (NORM) RBC Morph Comment Normal morphology Normal morphology (NORM) D-Dimer (0.00-0.59) mg/L VBG pH (7.32-7.42) VBG pCO2 (45-55) mmHg VBG HCO3 (22-26) mmol/L VBG Base Excess (-2-2) MMOL/L Sodium 143 (135-145) meq/L Potassium 4.2 (3.8-5.2) meq/L Chloride 104 (98-112) meq/L Carbon Dioxide 27 (23-33) meq/L Anion Gap 12 (5-20) BUN 20 (7-22) mg/dL Creatinine 0.7 (0.50-1.20) mg/dL Estimated GFR > 60 (>60 ml/min/1.73m(2)) BUN/Creatinine Ratio 28.57 H (6-20) Glucose 191 H (78-110) mg/dL Mean Blood Glucose mg/dL Hemoglobin A1c (4.2-6.0) % Calculated Osmolality 303.0 H (267-292) mOsm/kg Lactic Acid (0.70-2.10) MMOL/L Calcium 9.0 (8.7-10.7) mg/dL Magnesium (1.6-2.4) mg/dL C-Reactive Protein (0.0-0.9) mg/dL 10/01/17 10/02/17 10/02/17 Range/Units 06:11 05:50 05:50 WBC 11.6 H (4.8-10.8) 10^3/uL RBC 3.82 L (4.20-5.40) 10^6/uL Hgb 11.8 L (12.0-16.0) g/dL Hct 34.7 L (37.0-47.0) % MCV 91 (81-99) FL MCH 31.0 (27-31) PG MCHC 34.1 (33-37) g/dL RDW Coeff of Sravani 12.7 (11.5-14.5) % Plt Count 229 (140-350) 10*3/uL MPV 7.3 L (7.4-12.2) FL Neut % (Auto) (50-80) % Lymph % (Auto) (10-50) % [place] % (Auto) (5-15) % Eos % (Auto) (0-8) % Baso % (Auto) (0-1) % Neut # (Auto) 10*3/UL Lymph # (Auto) 10*3/uL [place] # (Auto) (0.3-0.8) 10*3/UL Eos # (Auto) 10*3/UL Baso # (Auto) 10*3/UL Neutrophils % (Manual) 77 (50-80) % Band Neutrophils % 2 (0-10) % Lymphocytes % (Manual) 19 (10-50) % Monocytes % (Manual) 2 (0-12) % Eosinophils % (Manual) 0 (0-8) % Basophils % (Manual) 0 (0-1) % Metamyelocytes % Not Reportable Myelocytes % Not Reportable Promyelocytes % Not Reportable Blast Cells Not Reportable WBC Morphology Comment Normal morphology (NORM) Plt Morphology Comment Normal morphology (NORM) RBC Morph Comment Normal morphology (NORM) D-Dimer (0.00-0.59) mg/L VBG pH (7.32-7.42) VBG pCO2 (45-55) mmHg VBG HCO3 (22-26) mmol/L VBG Base Excess (-2-2) MMOL/L Sodium 143 (135-145) meq/L Potassium 4.6 (3.8-5.2) meq/L Chloride 106 (98-112) meq/L Carbon Dioxide 27 (23-33) meq/L Anion Gap 10 (5-20) BUN 21 (7-22) mg/dL Creatinine 0.7 (0.50-1.20) mg/dL Estimated GFR > 60 (>60 ml/min/1.73m(2)) BUN/Creatinine Ratio 30.00 H (6-20) Glucose 196 H (78-110) mg/dL Mean Blood Glucose 142.438 mg/dL Hemoglobin A1c 6.86 H (4.2-6.0) % Calculated Osmolality 303.0 H (267-292) mOsm/kg Lactic Acid (0.70-2.10) MMOL/L Calcium 9.3 (8.7-10.7) mg/dL Magnesium 2.3 (1.6-2.4) mg/dL C-Reactive Protein (0.0-0.9) mg/dL [address] [facility] [place] [address] PH: DD: [phone] FAX: [phone] ~DIAGNOSTIC IMAGING REPORT~ Patient: DYLAN DELGADO : 1945 Sex: F Age: 72 Exam Name: CT CTA Chest Non-[facility]onary [facility] Exam Date: 09/29/17 Report # : [id number] CPT Code: 33492 EMR/MR #: [id number] Ordering: GUS WILLIS Admiting: GUS WILLIS DO Primary: NONE,NONE Attending: GUS WILLIS DO Signed CT ANGIOGRAM OF THE CHEST, 09/29/2017 1:03 PM : Clinical History: Shortness of breath. Right midlung field pulmonary nodule. Previous Exam: 08/17/2015. Scans are performed from the base of the neck to the lower lung bases following IV administration of 75 mL of Isovue 300. Proprietary automated bolus tracking software was used to verify the timing of the injection. The base of the neck and thoracic inlet are normal. There are no abnormal axillary or supraclavicular lymph nodes. There is adenopathy involving the superior mediastinal lymph nodes as well as both hilar and the subcarinal lymph nodes. The heart is normal. Coronary artery calcifications are present in the LAD and left circumflex artery. There is pulmonary arterial hypertension without evidence of pulmonary embolism or pulmonary embolism with infarction. There is no acute infiltrate or effusion. This patient has bullous emphysema with extensive chronic interstitial lung disease manifested by an extensive amount of Radames A and Radames B lines. There is a calcified 4 mm granuloma in the right upper lobe laterally. There is a noncalcified nodule located in the right upper lobe anteriorly abutting the minor fissure and this was present before and has not changed and accounts for the density seen on the chest x- ray. There is bronchiectasis in both lower lobes without definite evidence of chronic aspiration pneumonitis. Both adrenal glands and the visualized portions of the liver and spleen are normal. READIN. There is no evidence of pulmonary embolism or pulmonary embolism with infarction. There is marked pulmonary arterial hypertension. 2. 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 There is mild bronchiectasis in both lower lobes without evidence of aspiration pneumonitis. 3. There are pleural-based densities in the right upper lobe abutting the minor fissure that have not changed in 25 months indicating their benign. The largest density accounts for the nodule seen on the chest x-ray. Dictated By: 09/29/17 1512 YOLANDA BOBBY MD. Signed By: 09/29/17 1530 YOLANDA BOBBY MD. [address] [facility] [place] [address] PH: DD: [phone] FAX: [phone] ~DIAGNOSTIC IMAGING REPORT~ Patient: DYLAN DELGADO : 1945 Sex: F Age: 72 Exam Name: CT Head WO Contrast Exam Date: 09/29/17 Report # : [id number] CPT Code: 80329 EMR/MR #: [id number] Ordering: Minh Brownlee Admiting: Primary: NONE,NONE Attending: Signed CT HEAD SCAN WITHOUT IV CONTRAST, 09/29/2017 10:19 AM : Clinical History: Worst headache. Previous Exam: None at this facility. Scans are obtained from the foramen magnum to the vertex without IV contrast. The 4th, 3rd, and lateral ventricles are of normal size, shape, position, and contour for the patient's age. There is no evidence of a subarachnoid hemorrhage or intraparenchymal hemorrhage. No bland infarct is identified. There is mild cerebral atrophy. There are no extracerebral mantles or shift of the midline structures. Bone window evaluation is normal. The paranasal sinuses are normal. READIN. Normal non contrast CT head scan. 2. No definite subarachnoid hemorrhage is identified, but if a subarachnoid hemorrhage is suspected clinically, then a lumbar puncture is recommended. 3. Mild cerebral atrophy. Dictated By: 09/29/17 1153 YOLANDA BOBBY MD. Signed By: 09/29/17 1205 YOLANDA BOBBY MD. [address] [facility] [place] [address] PH: DD: [phone] FAX: [phone] ~DIAGNOSTIC IMAGING REPORT~ Patient: DYLAN DELGADO : 1945 Sex: F Age: 72 Exam Name: XR CXR 2VW PA/LAT Exam Date: 09/29/17 Report # : [id number] CPT Code: 21266 EMR/MR #: [id number] Ordering: Minh Brownlee Admiting: Primary: NONE,NONE Attending: Signed PA /LATERAL CHEST X-RAY, 09/29/2017 10:10 AM : Clinical History: Shortness of breath. Cough. Previous Exam: 02/05/2015. There is no acute soft tissue or bony abnormality. Heart size is normal. No acute infiltrate or effusion is present, but there is a chronic interstitial process present manifested by a reticulonodular pattern. There is "tram tracking " consistent with chronic bronchitis or bronchiectasis and interstitial changes are more prevalent in both lower lung bases and therefore chronic aspiration pneumonitis cannot entirely be excluded. The soft tissues in the region of the location of the azygos vein or azygos node is more prominent than before and adenopathy cannot be excluded. There is a roughly 10 mm density overlying the right eighth rib posteriorly and the fifth rib anteriorly toward the lateral aspect of the chest. This density is not seen on the lateral film and it either represents a summation artifact or a nodule. Readin. There is a chronic interstitial disease pattern present. This is stable since the last exam. 2. This patient has evidence of chronic bronchitis or bronchiectasis and with the increased interstitial changes in both lung bases, chronic aspiration pneumonitis cannot be excluded. 3. There is a density on the PA film along the lateral chest wall in the mid lung field. This either represents an artifact or it may represent a true pulmonary nodule. Dictated By: 09/29/17 1154 YOLANDA BOBBY MD. Signed By: 09/29/17 1211 YOLANDA BOBBY MD. Patient Problems - Patient Problem List (1) COPD exacerbation Current Visit: Yes Status: Acute Comment: Await for CT scan results either history of a Sepulveda cyst on did not tolerate inhalers Code(s): J44.1 - Chronic obstructive pulmonary disease with (acute) exacerbation Category: Medical (2) Pulmonary fibrosis Current Visit: Yes Status: Acute Code(s): J84.10 - Pulmonary fibrosis, unspecified Category: Medical (3) Bronchiectasis Current Visit: Yes Status: Acute Code(s): J47.9 - Bronchiectasis, uncomplicated Qualifiers: Bronchiectasis type: with acute exacerbation Qualified Code(s): J47.1 - Bronchiectasis with (acute) exacerbation Category: Medical (4) Coronary artery disease Current Visit: Yes Status: Acute Code(s): I25.10 - Atherosclerotic heart disease of [place] coronary artery without angina pectoris Qualifiers: Coronary Disease-Associated Artery/Lesion type: [place] artery [place] vs. transplanted heart: kake heart Associated angina: without angina Qualified Code(s): I25.10 - Atherosclerotic heart disease of [place] coronary artery without angina pectoris Category: Medical (5) Tobacco abuse Current Visit: Yes Status: Acute Code(s): Z72.0 - Tobacco use Category: Medical (6) Urinary incontinence Current Visit: Yes Status: Acute Code(s): R32 - Unspecified urinary incontinence Qualifiers: Urinary Incontinence type: unspecified incontinence Qualified Code(s): R32 - Unspecified urinary incontinence Category: Medical (7) Hypercholesterolemia Current Visit: Yes Status: Acute Code(s): E78.00 - Pure hypercholesterolemia , unspecified Category: Medical (8) Diabetes mellitus type II, controlled Current Visit: Yes Status: Acute Code(s): E11.9 - Type 2 diabetes mellitus without complications Qualifiers: Diabetes mellitus complication status: without complication Diabetes mellitus 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
[2017-10-02 15:07] VITALS: O2SAT 96
[2017-10-03 14:38] LABS: ASR B Pertussis (State Health) NEGATIVE (NEGATIVE)
[2017-10-06 14:42] LABS: B. PERTUSSIS IGG Borderline (Negative)
[2017-10-10 13:51] LABS: ASPERGILLUS FLAVUS ANTIBODY Negative; ASPERGILLUS NIGER ANTIBODY Negative
[2017-10-10 13:53] LABS: ASPERGILLUS FUMIGATUS ANTIBODY Negative
== END 2017-10-02 16:30 | disposition home or self-care (01) | DRG 192 ==
LOC: ER 09:57 → MED/SURG 12:23
PROVIDERS: ADMIT Family Medicine; ATTEND Family Medicine

== ENCOUNTER 2017-11-11 19:18 | Inpatient (IN) ==
[2017-11-11] MEDS ORDERED: NORMAL SALINE 10 ML SYRINGE FLUSH IVP PRN ×2 (19:31→21:33)
[2017-11-11] MEDS ORDERED: Sodium Chloride 0.9% 1,000 ML PRIMARY IV ONE (19:31)
[2017-11-11] MEDS ORDERED: IPRATROPIUM/ALBUTEROL SULFATE 3 ML NEB NEB ONE ×2 (19:33→19:35)
[2017-11-11 19:49] LABS: BASOPHILS # (AUTO) 0.04 10*3/UL; BASOPHILS % (AUTO) 0.4 % (0-1); EOSINOPHILS # (AUTO) 0.01 10*3/UL; EOSINOPHILS % (AUTO) 0.1 % (0-8); Hematocrit [HCT] 36.4 % (37.0-47.0); Hemoglobin [HGB] 11.9 g/dL (12.0-16.0); MEAN CORPUSCULAR HEMOGLOBIN 29.5 PG (27-31); MEAN CORPUSCULAR HGB CONC 32.7 g/dL (33-37); MEAN CORPUSCULAR VOLUME 90.3 FL (81-99); MONOCYTES # (AUTO) 0.87 10*3/UL (0.3-0.8); MONOCYTES % (AUTO) 9.1 % (5-15); NEUTROPHILS # (AUTO) 6.86 10*3/UL; NEUTROPHILS % (AUTO) 72.2 % (50-80); RED BLOOD COUNT 4.03 10^6/uL (4.20-5.40)
[2017-11-11 19:51] LABS: PLATELET MORPHOLOGY COMMENT NORMAL MORPHOLOGY (NORM); RBC MORPHOLOGY COMMENT NORMAL MORPHOLOGY (NORM); WBC MORPHOLOGY COMMENT NORMAL MORPHOLOGY (NORM)
[2017-11-11] MEDS ORDERED: ACETAMINOPHEN 500 MG TABLET PO ONE (19:57)
[2017-11-11 20:04] LABS: VENOUS PH 7.427 (7.32-7.42)
[2017-11-11 20:05] LABS: BLOOD UREA NITROGEN 15 mg/dL (7-22); BUN/CREATININE RATIO 16.66 (6-20); SERUM ALBUMIN 4.3 g/dL (3.5-4.8)
--- NOTE | 2017-11-11 20:07 | PDOC ---
Dyspnea HPI - General Chief Complaint: Respiratory Complaint Stated Complaint: RESP. DISTRESS Date Seen by Provider: 11/11/17 Time Seen by Provider: 19:30 Source: POSITIVE: Patient, EMS Exam Limitations: POSITIVE: No limitations Treatment Prior to Arrival: REPORTS: None Nurse's Notes Reviewed & Considered: Yes EMS Report Reviewed & Considered: Verbal - History of Present Illness Initial Comments: The patient is a 72-year-old female who is brought to the emergency department by ambulance with complaints of increased shortness of breath. She does have a history of COPD and pulmonary fibrosis. She is normally on 2 L of oxygen at home. She states that today she has had increased difficulty breathing and some increased cough. On arrival here she also has a fever of 103. She denies any current chest pain. Her oxygen was running low and she had to increase her oxygen to 4 L at home. She denies any pain or swelling in her legs. She is not had any sore throat or congestion. She was in the hospital about a month ago with a COPD exacerbation and was treated with antibiotics at that time as well. - Patient Home Medications Home Medications: Home Medications albuterol sulfate HFA 90 mcg/actuation aerosol inhaler 2 inh INH Q6-8H PRN g aspirin 81 mg chewable tablet 81 mg PO QDAY tab 10/10/17 calcium carbonate 600 mg (1,500 mg)-vitamin D3 200 unit tablet 1 tab PO BID tab 10/10/17 cholecalciferol (vitamin D3) 1,000 unit tablet 1,000 unit PO QDAY #30 tab fluticasone 500 mcg-salmeterol 50 mcg/dose blistr powdr for inhalation 1 inh INH BID ea 10/10/17 losartan 25 mg tablet 25 mg PO QDAY tab 10/10/17 metoprolol tartrate 50 mg tablet 25 mg PO BID tab 10/10/17 oxybutynin chloride 5 mg tablet 5 mg PO BID tab 10/10/17 rosuvastatin 10 mg tablet 10 mg PO QPM #90 tab 10/10/17 - Patient Allergies Allergies/Adverse Reactions: Allergies 3 Allergy/AdvReac Type Severity Reaction Status Date / Time Penicillins Allergy HIVES Verified 11/11/17 19:24 Past Medical History - heen HEENT History: Cataracts Cardiovascular History: Previous DC Additional Cardiovasular History: STENTS X3 Respiratory History: Asthma, COPD, Pneumonia, Home Oxygen Use Additional Respiratory History: Chronic bronchitis Gastrointestinal History: Other (please comment) Additional Gastrointestinal History: occasional diarrhea/nausea/vomiting approx q 2-3 mo Genitourinary History: Denies History Endocrine History: Denies History Musculoskeletal History: Denies History Prosthesis or Implant: No Neurological History: Denies History Blood Disorders: Denies History Psychiatric History: Denies History History of Sexually Transmitted Diseases: No Female Reproductive History: Denies History Obstetrical History: Denies History Cancer History: Denies History In Past Year Been Physically Harmed or Verbally Threatened: No History of MDRO: No History of Other Communicable Diseases: No Tobacco Use: Former Smoker Alcohol Use: Rarely In the Past 12 Months, Have Used or Abuse Any Substance: None Previous Surgical History: No Type / Date of Surgery: HYSTERECTOMY, CARDIAC STENTS X3 Anesthesia Reactions: No Malignant Hyperthermia: No Significant Family History: No pertinent family hx Past Medical History Reviewed: Reviewed - No Changes ROS - Limitations ROS Limitations: No Limitations Constitution: REPORTS: Fever (Temperature is 103 on arrival here). DENIES: Chills Cardiovascular: DENIES: Chest Pain, Edema Respiratory: REPORTS: Cough Non Productive, Shortness Of Breath, Wheezing Neurological: REPORTS: Denies Neuro Symptoms Gastrointestinal: REPORTS: Denies GI Symptoms Musculoskeletal: REPORTS: Denies MS Symptoms Eyes: REPORTS: Denies Symptoms ENT: REPORTS: Denies Symptoms Skin: DENIES: Rash Dyspnea Physical Exam - General Appearance General Appearance: REPORTS: Alert, Cooperative, Other (She does appear ill and has mild increased work of breathing) - HEENT HEENT: POSITIVE: Head Inspection Nml, Eyes Inspection Nml, Ears Inspection Nml, Dry Mucous Membranes - Neck Neck: REPORTS: Normal Inspection. DENIES: Lymphadenopathy - Respiratory Respiratory: REPORTS: Other (She has mildly tachypnea can has mild increased work of breathing, she has diminished breath sounds bilaterally with rhonchi and wheezes noted in both lung montalvo) - Cardiovascular Cardiovascular: REPORTS: Regular Rate and Rhythm, Heart Sounds Normal Peripheral Pulses: Dorsalis-pedis (R): 2+, Dorsalis-pedis (L): 2+ - Abdomen Abdomen: Soft: (All Quadrants), Denies Tenderness: (All Quadrants), No Distention: (All Quadrants) - Skin Skin: REPORTS: Intact, No Rash - Extremities Extremity: Normal ROM: (All Extremities), Normal Inspection: (All Extremities) - Neurological / Psychological Neurological: POSITIVE: Oriented X3, Motor Normal, Sensation Normal, Other (No focal neurologic deficits) Dyspnea Progress - Results Reviewed by me Xrays/CTs/US Reviewed by me: Yes Discussed with Radiologist: Yes Radiology Findings: Chest x-ray shows emphysematous changes and pulmonary fibrosis with no acute infiltrate per radiologist. CT of the chest is negative for PE, she does have an area of consolidation in the right middle lobe concerning for infectious process per radiologist. Lab Results Reviewed by Me: Yes CBC and BMP: 11/11/17 19:50 11/11/17 19:50 EKG Interpreted/Reviewed By Me:: Yes EKG Interpretation:: POSITIVE: Other (She does have normal sinus rhythm, she has some T-wave inversion in the anterior leads which is unchanged when compared to a previous EKG from September) - Patient's Progress MDM / ED Course: The patient was febrile on arrival and blood cultures and lactate were drawn with initial IV start. She was given Tylenol for fever. In addition she was given a DuoNeb breathing treatment. She was satting 93% on 4 L here. Her venous blood gas revealed a normal pH at 7.42. Chest x-ray shows pulmonary fibrosis with no obvious acute changes. Her blood work reveals a normal white count with a CRP over 5. Her d-dimer is also elevated. BNP is elevated at 1100 however was 1300 during her previous admission. Troponin is normal. Influenza screen is negative. CTA of the chest shows no evidence of PE with their an area of consolidation in the right middle lobe concerning for infectious process per radiologist. These findings were discussed with the patient as well as with Dr. Gomez. Current plan is for admission for treatment of COPD exacerbation and likely pneumonia. The patient did receive Rocephin and Zithromax here. She also received Solu-Medrol 125 mg IV. - Consult Counseled: POSITIVE: Patient, Family, RE: Lab Results, RE: Radiology Results, RE : DX Patient Care Time - Estimated PCT Patient Care Time (In Minutes): 40 Vital Signs - Recent Vital Signs Vital Signs: Vital Signs (Last 8 hours) Temp Pulse Resp BP Pulse Ox 11/11/17 20:01 103.2 F H 11/11/17 19:25 103.2 F H 99 24 168/64 87 11/11/17 19:20 103.2 F H 99 24 168/64 87 - VS Reviewed Vital Signs Reviewed: Yes Discharge Clinical Impression: COPD exacerbation, Pneumonia Discharge Disposition: Admit to Inpatient Condition: Fair Date Decision to Admit to Inpatient: 11/11/17 Time Decision to Admit to Inpatient: 20:30
--- NOTE | 2017-11-11 20:13 | DI ---
EXAM: XR Chest, 1 View CLINICAL HISTORY: Physician Notes: Tech Comments: TECHNIQUE: Frontal view of the chest. COMPARISON: Chest x-ray dated 09/29/2017 FINDINGS: Lungs: Diffuse reticular opacities which may represent interstitial edema versus chronic interstitial lung disease. Probable emphysematous changes. Pleural space: Unremarkable. No pneumothorax. Heart: Mild enlargement of the heart. Mediastinum: Unremarkable. Bones/joints: Unremarkable. IMPRESSION: 1. Diffuse reticular opacities which may represent interstitial edema versus chronic interstitial lung disease. 2. Probable emphysematous changes.
[2017-11-11] MEDS ORDERED: methylPREDNISolone 125 MG/2 ML VIAL IVP ONE (20:31)
[2017-11-11] MEDS ORDERED: cefTRIAXone Inj 2 GM in Sodium Chloride 0.9% 100 ML IV ONE (20:36)
--- NOTE | 2017-11-11 21:31 | DI ---
EXAM: CT Angiography Chest Without and With Intravenous Contrast CLINICAL HISTORY: Dyspnea TECHNIQUE: Axial computed tomographic angiography images of the chest without and with intravenous contrast using pulmonary embolism protocol. MIP reconstructed images were created and reviewed. COMPARISON: No relevant prior studies available. FINDINGS: Pulmonary arteries: No evidence of pulmonary embolus. Aorta: No acute findings. No thoracic aortic aneurysm. Lungs: Centrilobular and paraseptal emphysema. Subpleural fibrosis with honeycombing seen within the lower lobes in a UIP pattern. Consolidation within the right middle lobe with moderate wall thickening and patchy areas of consolidation within the lower lobe with probable wall thickening. Findings likely represent an inflammatory/infectious process. Pleural space: Unremarkable. No significant effusion. No pneumothorax. Heart: Coronary artery calcifications. No significant pericardial effusion. No evidence of RV dysfunction. Bones/joints: No acute fracture. No dislocation. Soft tissues: Unremarkable. Lymph nodes: Enlarged mediastinal and hilar lymph nodes, which are nonspecific. IMPRESSION: 1. No evidence of pulmonary embolus. 2. Centrilobular and paraseptal emphysema. 3. Subpleural fibrosis with honeycombing seen within the lower lobes in a UIP pattern. 4. Consolidation within the right middle lobe with moderate wall thickening and patchy areas of consolidation within the lower lobe with probable wall thickening. Findings likely represent an inflammatory/infectious process. Recommend short interval follow-up after appropriate treatment to demonstrate resolution.
[2017-11-11] MEDS ORDERED: OXYBUTYNIN CHLORIDE 5 MG PO SCH (21:33)
[2017-11-11] MEDS ORDERED: cefTRIAXone Inj 2 GM in Sodium Chloride 0.9% 100 ML IV SCH (21:33)
[2017-11-11] MEDS ORDERED: LIDOCAINE W/ SODIUM BICARB 0.5 ML SYR SUBD PRN ×2 (21:33→23:06)
[2017-11-11] MEDS ORDERED: Metoprolol TARTRATE Tab 50 MG TAB PO SCH (21:33)
--- NOTE | 2017-11-11 21:53 | PDOC ---
HPI - History of Present Illness Date of Service: 11/11/17 Time of Service: 21:45 Chief Complaint: Trouble breathing History of Present Illness: This very pleasant 72-year-old female that has what appeared to be pulmonary fibrosis and COPD, recently admitted for COPD exacerbation in September. She presented today and stated that she came down with worsening shortness of breath today, developed a fever up to 103 on admission to the emergency room, and had a cough that feels different from her normal cough. It is not overly productive. She is struggling to even get 1-2 word sentences out. An initial blood gas showed a pH that is not acidotic and a CO2 of 36.3. Her bicarbonate was normal at 24. Breathing treatments have not helped a lot. She did get follow-up with [facility] but is still waiting for the appointment time. She also has quit smoking and has not smoked in over a month now. I discussed antibiotics with the emergency room physician and he decided not to class switch antibiotics, but upon arrival to the floor, with her severe hypoxemic respiratory failure and distress, the patient may actually tire out much more quickly than I would've expected. I will actually class switch her to Levaquin. She's not sure what caused this overall, she does state her has had some cough and has not felt very well at home. The patient does note that she had a headache this morning and that's how things really started off and she's had some sinus pressure and tenderness. Aside from her medications at home nothing in addition was tried until she just got worse and came into the emergency room. Past Medical History Medical History: 1. COPD. 2. Tobacco abuse, has abstained for the last month. 3. Pulmonary fibrosis. 4. Hypertension. 5. MO in 2004. 6. hyperlipidemia. 7. stress incontinence Surgical History: Bladder sling in 2007, colonoscopy in 2007, stents x3, hysterectomy, tonsillectomy, tubal ligation Pertinent Family History: Father of emphysema and mother of congestive heart failure Past Social History: Smokes one to 2 packs per day, , has children that are described as healthy although her son does have diabetes. 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 No alcohol. Tobacco Use: Former Smoker (Quit 1 month ago) In the Past 12 Months, Have Used or Abuse Any of the Following Substance: None Alcohol Use: None Medication / Allergies Home Medications: Home Medications Medication Instructions Recorded Confirmed Type albuterol sulfate HFA 90 2 inh INH Q6-8H PRN g 10/10/17 11/11/17 History mcg/actuation aerosol inhaler aspirin 81 mg chewable tablet 81 mg PO QDAY tab 10/10/17 11/11/17 History calcium carbonate 600 mg (1,500 1 tab PO BID tab 10/10/17 11/11/17 History mg)-vitamin D3 200 unit tablet cholecalciferol (vitamin D3) 1,000 1,000 unit PO QDAY #30 tab 10/10/17 11/11/17 History unit tablet fluticasone 500 mcg-salmeterol 50 1 inh INH BID ea 10/10/17 11/11/17 History mcg/dose blistr powdr for inhalation losartan 25 mg tablet 25 mg PO QDAY tab 10/10/17 11/11/17 History metoprolol tartrate 50 mg tablet 25 mg PO BID tab 10/10/17 11/11/17 History oxybutynin chloride 5 mg tablet 5 mg PO BID tab 10/10/17 11/11/17 History rosuvastatin 10 mg tablet 10 mg PO QPM #90 tab 10/10/17 11/11/17 Rx Allergies/Adverse Reactions: Allergies 3 Allergy/AdvReac Type Severity Reaction Status Date / Time Penicillins Allergy HIVES Verified 11/11/17 19:24 Review of Systems - Review of Systems ROS Unobtainable: Due to Condition (The patient is in acute respiratory distress , is breathing very labored at 20-30 times per minute, she cannot get out more than 1 word sentences without having to take a breath.) Exam - Vitals Vital Signs: Vital Signs (24 hrs) Temp Pulse Resp BP Pulse Ox 11/11/17 20:01 103.2 F H 11/11/17 19:25 103.2 F H 99 24 168/64 87 11/11/17 19:20 103.2 F H 99 24 168/64 87 - General General Appearance: Cooperative, Mild Distress - Head Head Exam: Normal Inspection, Normocephalic, Atraumatic - Eye Eye Exam: POSITIVE: No Scleral Icterus - ENT ENT Exam: POSITIVE: Mucous Membranes Moist Additonal ENT Exam Details: Facial redness, tenderness on sinuses - Neck Neck Exam: Normal Inspection, No Tenderness, No Lymphadenopathy, No Thyromegaly - Respiratory Respiratory Exam: POSITIVE: Decreased Breath Sounds, Wheezes, Coarse Breath Sounds, Respiratory Distress (Mild to moderate respiratory distress), Dull to Percussion Additional Respiratory Exam Details: Labored breathing. - Cardiovascular Cardiovascular Exam: POSITIVE: RRR, No Murmur, No Clicks, No Gallops, No Rubs, No JVD - GI/Abdominal GI/Abdominal Exam: POSITIVE: Normal Bowel Sounds, Non Tender, Non Distended, Soft - Rectal Rectal Exam: POSITIVE: Deferred - External Exam: POSITIVE: Deferred Exam: POSITIVE: Deferred - Extremities Extremities Exam: POSITIVE: No Edema Present, No Cyanosis Present, Clubbing Present - Back Back Exam: POSITIVE: No CVA Tenderness - Neurological Neurological Exam: POSITIVE: Alert, Oriented x 3, No Facial Droop, Speech Intact / Clear, Moves All Extremities Equally - Psychiatric Psychiatric Exam: POSITIVE: Anxious Results - Labs CBC and BMP: 11/11/17 19:50 11/11/17 19:50 Additional Lab Results: Laboratory Results 11/11/17 11/11/17 11/11/17 Range/Units 19:50 19:50 19:50 WBC 9.51 (4.8-10.8) 10^3/uL RBC 4.03 L (4.20-5.40) 10^6/uL Hgb 11.9 L (12.0-16.0) g/dL Hct 36.4 L (37.0-47.0) % MCV 90.3 (81-99) FL MCH 29.5 (27-31) PG MCHC 32.7 L (33-37) g/dL RDW Std Deviation 48.3 (39-50) fL RDW Coeff of Sravani 14.9 H (11.5-14.5) % Plt Count 153 (140-350) 10*3/uL MPV 9.0 (7.4-12.2) FL Immature Gran % (Auto) 0.3 (0-5) % Neut % (Auto) 72.2 (50-80) % Lymph % (Auto) 17.9 (10-50) % [place] % (Auto) 9.1 (5-15) % Eos % (Auto) 0.1 (0-8) % Baso % (Auto) 0.4 (0-1) % Immature Gran # (Auto) 0.03 10*3/UL Neut # (Auto) 6.86 10*3/UL Lymph # (Auto) 1.70 10*3/uL [place] # (Auto) 0.87 H (0.3-0.8) 10*3/UL Eos # (Auto) 0.01 10*3/UL Baso # (Auto) 0.04 10*3/UL WBC Morphology Comment Normal morphology (NORM) Plt Morphology Comment Normal morphology (NORM) RBC Morph Comment Normal morphology (NORM) D-Dimer 1.50 H (0.00-0.59) mg/L Sodium 136 (135-145) meq/L Potassium 4.2 (3.8-5.2) meq/L Chloride 98 (98-112) meq/L Carbon Dioxide 25 (23-33) meq/L Anion Gap 13 (5-20) BUN 15 (7-22) mg/dL Creatinine 0.9 (0.50-1.20) mg/dL Estimated GFR > 60 (>60 ml/min/1.73m(2)) BUN/Creatinine Ratio 16.66 (6-20) Glucose 178 H (78-110) mg/dL Calculated Osmolality 286.0 (267-292) mOsm/kg Lactic Acid (0.70-2.10) MMOL/L Calcium 8.9 (8.7-10.7) mg/dL Magnesium 1.8 (1.6-2.4) mg/dL Total Bilirubin 0.7 (0.3-1.2) mg/dL AST 27 (8-39) IU/L ALT 35 (9-52) IU/L Alkaline Phosphatase 52 (38-126) IU/L Troponin I (< 0.040) ng/mL C-Reactive Protein 5.6 H (0.0-0.9) mg/dL NT-Pro-B Natriuret Pep 1160 H (0-125) PG/ML Total Protein 7.4 (6.1-8.0) g/dL Albumin 4.3 (3.5-4.8) g/dL Globulin 3.1 (2.50-4.10) g/dL Albumin/Globulin Ratio 1.30 (1.3-2.0) mg/g 11/11/17 11/11/17 Range/Units 19:50 19:50 WBC (4.8-10.8) 10^3/uL RBC (4.20-5.40) 10^6/uL Hgb (12.0-16.0) g/dL Hct (37.0-47.0) % MCV (81-99) FL MCH (27-31) PG MCHC (33-37) g/dL RDW Std Deviation (39-50) fL RDW Coeff of Sravani (11.5-14.5) % Plt Count (140-350) 10*3/uL MPV (7.4-12.2) FL Immature Gran % (Auto) (0-5) % Neut % (Auto) (50-80) % Lymph % (Auto) (10-50) % [place] % (Auto) (5-15) % Eos % (Auto) (0-8) % Baso % (Auto) (0-1) % Immature Gran # (Auto) 10*3/UL Neut # (Auto) 10*3/UL Lymph # (Auto) 10*3/uL [place] # (Auto) (0.3-0.8) 10*3/UL Eos # (Auto) 10*3/UL Baso # (Auto) 10*3/UL WBC Morphology Comment (NORM) Plt Morphology Comment (NORM) RBC Morph Comment (NORM) D-Dimer (0.00-0.59) mg/L Sodium (135-145) meq/L Potassium (3.8-5.2) meq/L Chloride (98-112) meq/L Carbon Dioxide (23-33) meq/L Anion Gap (5-20) BUN (7-22) mg/dL Creatinine (0.50-1.20) mg/dL Estimated GFR (>60 ml/min/1.73m(2)) BUN/Creatinine Ratio (6-20) Glucose (78-110) mg/dL Calculated Osmolality (267-292) mOsm/kg Lactic Acid 1.5 (0.70-2.10) MMOL/L Calcium (8.7-10.7) mg/dL Magnesium (1.6-2.4) mg/dL Total Bilirubin (0.3-1.2) mg/dL AST (8-39) IU/L ALT (9-52) IU/L Alkaline Phosphatase (38-126) IU/L Troponin I < 0.012 (< 0.040) ng/mL C-Reactive Protein (0.0-0.9) mg/dL NT-Pro-B Natriuret Pep (0-125) PG/ML Total Protein (6.1-8.0) g/dL Albumin (3.5-4.8) g/dL Globulin (2.50-4.10) g/dL Albumin/Globulin Ratio (1.3-2.0) mg/g - EKG Data -: EKG Interpreted by Me Rate: Normal EKG Shows Normal: Sinus Rhythm - EKG Data EKG Interpretation: Unchanged When Compared to Prior Tracing (Date), Other (T- wave inversions in 1 and aVL and in some of the precordial leads that appear the same compared to prior chest x-ray) - Imaging Status: Image Reviewed by Me (I reviewed the chest x-ray, it looks worse to me than on prior admission, and most consistent with pulmonary fibrosis given her history. I looked at the CT scan of the chest, and I think there could be a right middle lobe pneumonia but I am awaiting the read from the radiologist, severe emphysema.) Assessment and Plan - Patient Problems (1) Acute on chronic respiratory failure with hypoxemia Current Visit: Yes Status: Acute Code(s): J96.21 - Acute and chronic respiratory failure with hypoxia (2) COPD exacerbation Current Visit: Yes Status: Acute Code(s): J44.1 - Chronic obstructive pulmonary disease with (acute) exacerbation (3) Pneumonia Current Visit: Yes Status: Acute Code(s): J18.9 - Pneumonia, unspecified organism Qualifiers: Pneumonia type: due to unspecified organism Laterality: right Lung location: middle lobe of lung Qualified Code(s): J18.1 - Lobar pneumonia, unspecified organism (4) Pulmonary fibrosis Current Visit: Yes Status: Acute Code(s): J84.10 - Pulmonary fibrosis, unspecified (5) Coronary artery disease Current Visit: Yes Status: Chronic Code(s): I25.10 - Atherosclerotic heart disease of ruby coronary artery without angina pectoris Qualifiers: Coronary Disease-Associated Artery/Lesion type: ruby artery [place] vs. transplanted heart: ruby heart Associated angina: without angina Qualified Code(s): I25.10 - Atherosclerotic heart disease of ruby coronary artery without angina pectoris (6) Urinary incontinence Current Visit: Yes Status: Chronic Code(s): R32 - Unspecified urinary incontinence Qualifiers: Urinary Incontinence type: unspecified incontinence Qualified Code(s): R32 - Unspecified urinary incontinence (7) Hypercholesterolemia Current Visit: Yes Status: Chronic Code(s): E78.00 - Pure hypercholesterolemia, unspecified (8) Diabetes mellitus type II, controlled Current Visit: Yes Status: Acute Code(s): E11.9 - Type 2 diabetes mellitus without complications Qualifiers: Diabetes mellitus complication status: without complication Diabetes mellitus longterm insulin use: without traffic worker use Qualified Code(s): E11.9 - Type 2 diabetes mellitus without complications - Assessment / Plan Additional Assessment/Plan Details: Admit the patient. At this point I will hold off on ICU admission, but I will utilize BiPAP therapy. Breathing therapies/pulmonary toilet and steroids. Despite discussing with the emergency room physician to continue Rocephin and Zithromax on this admission, I think the patient would actually benefit from a class which. As we do not see significant gram-negative organisms in the hospital here, I will hold off on Zosyn as well as vancomycin. But I think she would benefit from Levaquin. Check an arterial blood gas in the morning. Check labs in a.m. Full code. I discussed with the patient that she could get significantly worse in terms of her condition, and she could require intubation which the patient would be okay with. I'm using BiPAP therapy in the setting of acute hypoxemic respiratory failure. I am hoping this will reduce her work of breathing. If this is worsening pulmonary fibrosis by CT scan, and I am awaiting the report , this can be ominous for the patient and prognosis to be very guarded. I will use stress ulcer prophylaxis, in particular with the pulmonary fibrosis, I think the patient would benefit from extended her time pump inhibitor therapy. DVT prophylaxis. Overall, the patient may have an underlying sinusitis as well, but antibiotic should cover both the lungs and the sinuses at this point. I may order decongestion for the sinuses as well
[2017-11-11] MEDS ORDERED: Levofloxacin 750 MG / 30 ML VIAL IV ONE (22:02)
[2017-11-11] MEDS ORDERED: ALBUTEROL SULFATE 2.5 MG/3 ML NEB PRN ×2 (22:12→23:06)
[2017-11-11] MEDS ORDERED: methylPREDNISolone 125 MG/2 ML VIAL IVP SCH (22:15)
[2017-11-11] MEDS ORDERED: Pantoprazole Inj 40 MG in Normal Saline Flush 10 ML IVP ONE ×2 (22:16→23:06)
[2017-11-11] MEDS ORDERED: Levofloxacin (Premix) 750 MG/150 ML PIGGYBACK IV SCH (22:34)
[2017-11-11 22:52] LABS: VENOUS PH 7.419 (7.32-7.42)
[2017-11-11] MEDS ORDERED: Glucagon Inj Vial 1 MG/ML VIAL IM PRN (23:06)
[2017-11-11] MEDS ORDERED: Insulin Sliding Scale Protocol SUBCUT PRN (23:06)
[2017-11-11] MEDS ORDERED: DEXTROSE 50%-WATER SYRINGE 50 ML SYRINGE IVP PRN (23:06)
[2017-11-11] MEDS ORDERED: DEXTROSE 31 GM GEL PO PRN (23:06)
[2017-11-12] MEDS ORDERED: LIDOCAINE HCL 2 % 10 ML JELLY URO-JECT TOPICAL PRN (00:45)
[2017-11-12 05:15] LABS: BASOPHILS # (AUTO) 0.02 10*3/UL; BASOPHILS % (AUTO) 0.2 % (0-1); EOSINOPHILS # (AUTO) 0 10*3/UL; EOSINOPHILS % (AUTO) 0 % (0-8); Hematocrit [HCT] 37.4 % (37.0-47.0); Hemoglobin [HGB] 12.1 g/dL (12.0-16.0); LYMPHOCYTES # (AUTO) 0.87 10*3/uL; MEAN CORPUSCULAR HEMOGLOBIN 29.3 PG (27-31); MEAN CORPUSCULAR HGB CONC 32.4 g/dL (33-37); MEAN CORPUSCULAR VOLUME 90.6 FL (81-99); MEAN PLATELET VOLUME 9.4 FL (7.4-12.2); MONOCYTES % (AUTO) 3.9 % (5-15); NEUTROPHILS # (AUTO) 8.83 10*3/UL; RED BLOOD COUNT 4.13 10^6/uL (4.20-5.40)
[2017-11-12 05:23] LABS: BLOOD UREA NITROGEN 16 mg/dL (7-22)
[2017-11-12 05:40] LABS: ABG BASE EXCESS -1 MMOL/L (-2-2); ABG OXYGEN SATURATION 95 % (90-100); ABG PCO2 38 MMHG (34-38); ABG PO2 71 MMHG (65-75); COLLECTION SITE LR
[2017-11-12 05:41] LABS: ALLEN TEST POSS
[2017-11-12] MEDS: methylPREDNISolone 125 MG/2 ML VIAL IVP SCH ×3 (05:55→20:45)
[2017-11-12 05:57] LABS: PLATELET MORPHOLOGY COMMENT NORMAL MORPHOLOGY (NORM); RBC MORPHOLOGY COMMENT NORMAL MORPHOLOGY (NORM); WBC MORPHOLOGY COMMENT NORMAL MORPHOLOGY (NORM)
[2017-11-12] MEDS ORDERED: Sodium Chloride 0.9% 500 ML PRIMARY IV SCH (06:00)
[2017-11-12] MEDS: IPRATROPIUM/ALBUTEROL SULFATE 3 ML NEB NEB SCH ×4 (06:32→19:44)
[2017-11-12] MEDS: Insulin Lispro Flexpen 300 UNIT/3 ML INSULN.PEN SUBCUT SCH ×4 (06:59→23:13)
[2017-11-12] MEDS ORDERED: IPRATROPIUM/ALBUTEROL SULFATE 3 ML NEB NEB SCH (07:00)
[2017-11-12] MEDS: LOSARTAN 25 MG TABLET PO SCH (08:51)
[2017-11-12] MEDS: Metoprolol TARTRATE Tab 50 MG TAB PO SCH ×2 (08:51→20:44)
[2017-11-12] MEDS: Levofloxacin (Premix) 750 MG/150 ML PIGGYBACK IV SCH (08:51)
[2017-11-12] MEDS: ASPIRIN 81 MG (BABY) CHEWABLE TABLET PO SCH (08:51)
[2017-11-12] MEDS: CHOLECALCIFEROL 1000 IU TABLET PO SCH (08:51)
[2017-11-12] MEDS: Pantoprazole Inj 40 MG in Normal Saline Flush 10 ML IVP SCH (08:52)
[2017-11-12] MEDS: ENOXAPARIN SODIUM 40 MG/0.4 ML SYRINGE SUBCUT SCH (08:55)
[2017-11-12] MEDS ORDERED: Levofloxacin 750 MG / 30 ML VIAL IV SCH (09:00)
[2017-11-12] MEDS ORDERED: CHOLECALCIFEROL 1000 IU TABLET PO SCH (09:00)
[2017-11-12] MEDS ORDERED: ASPIRIN 81 MG (BABY) CHEWABLE TABLET PO SCH (09:00)
[2017-11-12] MEDS ORDERED: LOSARTAN 25 MG TABLET PO SCH (09:00)
[2017-11-12] MEDS ORDERED: Pantoprazole Inj 40 MG in Normal Saline Flush 10 ML IVP SCH (09:00)
[2017-11-12] MEDS ORDERED: ENOXAPARIN SODIUM 40 MG/0.4 ML SYRINGE SUBCUT SCH (09:00)
[2017-11-12] MEDS: OXYBUTYNIN CHLORIDE 5 MG PO SCH ×2 (09:10→23:15)
--- NOTE | 2017-11-12 09:32 | EKG ---
[address] [place] [address] Measurements Intervals [place] Rate: 93 P: 64 DC: 171 QRS: 17 QRSD: 82 T: 120 QT: 324 QTc: 375 Interpretive Statements SINUS RHYTHM POSSIBLE RIGHT VENTRICULAR CONDUCTION DELAY SEPTAL MYOCARDIAL INFARCTION PROBABLY OLD MODERATE T-WAVE ABNORMALITY, CONSIDER LATERAL ISCHEMIA Compared to ECG 09/29/2017 09:46:35 Myocardial infarct finding now present T-wave abnormality still present Possible ischemia still present Electronically Signed On 11-12-17 14:29:44 MST by Caleb Brewster [email or web address]
[2017-11-12] MEDS: ACETAMINOPHEN 325 MG TABLET PO PRN ×2 (14:34→20:44)
--- NOTE | 2017-11-12 17:09 | PDOC(PROG) ---
Date and Time of Service: 11/12/2017, 1705 Interval History: No completes of chest pain, shortness breath persists. Able to talk in complete sentences on BiPAP. RN reports that patient desaturated while eating and became more tachypneic and tachycardic. No nausea or vomiting. Objective : Data - Labs CBC and BMP: 11/12/17 05:00 11/12/17 05:00 Additional Lab Results: Laboratory Results 11/11/17 11/11/17 11/11/17 Range/Units 19:50 19:50 19:50 WBC 9.51 (4.8-10.8) 10^3/uL RBC 4.03 L (4.20-5.40) 10^6/uL Hgb 11.9 L (12.0-16.0) g/dL Hct 36.4 L (37.0-47.0) % MCV 90.3 (81-99) FL MCH 29.5 (27-31) PG MCHC 32.7 L (33-37) g/dL RDW Std Deviation 48.3 (39-50) fL RDW Coeff of Sravani 14.9 H (11.5-14.5) % Plt Count 153 (140-350) 10*3/uL MPV 9.0 (7.4-12.2) FL Immature Gran % (Auto) 0.3 (0-5) % Neut % (Auto) 72.2 (50-80) % Lymph % (Auto) 17.9 (10-50) % [place] % (Auto) 9.1 (5-15) % Eos % (Auto) 0.1 (0-8) % Baso % (Auto) 0.4 (0-1) % Immature Gran # (Auto) 0.03 10*3/UL Neut # (Auto) 6.86 10*3/UL Lymph # (Auto) 1.70 10*3/uL [place] # (Auto) 0.87 H (0.3-0.8) 10*3/UL Eos # (Auto) 0.01 10*3/UL Baso # (Auto) 0.04 10*3/UL WBC Morphology Comment Normal morphology (NORM) Plt Morphology Comment Normal morphology (NORM) RBC Morph Comment Normal morphology (NORM) D-Dimer 1.50 H (0.00-0.59) mg/L ABG pH (7.35-7.45) ABG pCO2 (34-38) MMHG ABG pO2 (65-75) MMHG ABG HCO3 (22-26) ABG Total CO2 (23-27) MMOL/L ABG O2 Saturation (90-100) % ABG Base Excess (-2-2) MMOL/L Carlos Test VBG pH (7.32-7.42) VBG pCO2 (45-55) mmHg VBG HCO3 (22-26) mmol/L VBG Base Excess (-2-2) MMOL/L FiO2 Sodium 136 (135-145) meq/L Potassium 4.2 (3.8-5.2) meq/L Chloride 98 (98-112) meq/L Carbon Dioxide 25 (23-33) meq/L Anion Gap 13 (5-20) BUN 15 (7-22) mg/dL Creatinine 0.9 (0.50-1.20) mg/dL Estimated GFR > 60 (>60 ml/min/1.73m(2)) BUN/Creatinine Ratio 16.66 (6-20) Glucose 178 H (78-110) mg/dL Calculated Osmolality 286.0 (267-292) mOsm/kg Lactic Acid (0.70-2.10) MMOL/L Calcium 8.9 (8.7-10.7) mg/dL Magnesium 1.8 (1.6-2.4) mg/dL Total Bilirubin 0.7 (0.3-1.2) mg/dL AST 27 (8-39) IU/L ALT 35 (9-52) IU/L Alkaline Phosphatase 52 (38-126) IU/L Troponin I (< 0.040) ng/mL C-Reactive Protein 5.6 H (0.0-0.9) mg/dL NT-Pro-B Natriuret Pep 1160 H (0-125) PG/ML Total Protein 7.4 (6.1-8.0) g/dL Albumin 4.3 (3.5-4.8) g/dL Globulin 3.1 (2.50-4.10) g/dL Albumin/Globulin Ratio 1.30 (1.3-2.0) mg/g 11/11/17 11/11/17 11/11/17 Range/Units 19:50 19:50 22:45 WBC (4.8-10.8) 10^3/uL RBC (4.20-5.40) 10^6/uL Hgb (12.0-16.0) g/dL Hct (37.0-47.0) % MCV (81-99) FL MCH (27-31) PG MCHC (33-37) g/dL RDW Std Deviation (39-50) fL RDW Coeff of Sravani (11.5-14.5) % Plt Count (140-350) 10*3/uL MPV (7.4-12.2) FL Immature Gran % (Auto) (0-5) % Neut % (Auto) (50-80) % Lymph % (Auto) (10-50) % [place] % (Auto) (5-15) % Eos % (Auto) (0-8) % Baso % (Auto) (0-1) % Immature Gran # (Auto) 10*3/UL Neut # (Auto) 10*3/UL Lymph # (Auto) 10*3/uL [place] # (Auto) (0.3-0.8) 10*3/UL Eos # (Auto) 10*3/UL Baso # (Auto) 10*3/UL WBC Morphology Comment (NORM) Plt Morphology Comment (NORM) RBC Morph Comment (NORM) D-Dimer (0.00-0.59) mg/L ABG pH (7.35-7.45) ABG pCO2 (34-38) MMHG ABG pO2 (65-75) MMHG ABG HCO3 (22-26) ABG Total CO2 (23-27) MMOL/L ABG O2 Saturation (90-100) % ABG Base Excess (-2-2) MMOL/L Carlos Test VBG pH 7.419 (7.32-7.42) VBG pCO2 33 L (45-55) mmHg VBG HCO3 21 L (22-26) mmol/L VBG Base Excess -3 L (-2-2) MMOL/L FiO2 Sodium (135-145) meq/L Potassium (3.8-5.2) meq/L Chloride (98-112) meq/L Carbon Dioxide (23-33) meq/L Anion Gap (5-20) BUN (7-22) mg/dL Creatinine (0.50-1.20) mg/dL Estimated GFR (>60 ml/min/1.73m(2)) BUN/Creatinine Ratio (6-20) Glucose (78-110) mg/dL Calculated Osmolality (267-292) mOsm/kg Lactic Acid 1.5 (0.70-2.10) MMOL/L Calcium (8.7-10.7) mg/dL Magnesium (1.6-2.4) mg/dL Total Bilirubin (0.3-1.2) mg/dL AST (8-39) IU/L ALT (9-52) IU/L Alkaline Phosphatase (38-126) IU/L Troponin I < 0.012 (< 0.040) ng/mL C-Reactive Protein (0.0-0.9) mg/dL NT-Pro-B Natriuret Pep (0-125) PG/ML Total Protein (6.1-8.0) g/dL Albumin (3.5-4.8) g/dL Globulin (2.50-4.10) g/dL Albumin/Globulin Ratio (1.3-2.0) mg/g 11/12/17 11/12/17 11/12/17 Range/Units 05:00 05:00 05:32 WBC 10.15 (4.8-10.8) 10^3/uL RBC 4.13 L (4.20-5.40) 10^6/uL Hgb 12.1 (12.0-16.0) g/dL Hct 37.4 (37.0-47.0) % MCV 90.6 (81-99) FL MCH 29.3 (27-31) PG MCHC 32.4 L (33-37) g/dL RDW Std Deviation 48.6 (39-50) fL RDW Coeff of Sravani 14.9 H (11.5-14.5) % Plt Count 147 (140-350) 10*3/uL MPV 9.4 (7.4-12.2) FL Immature Gran % (Auto) 0.3 (0-5) % Neut % (Auto) 87.0 H (50-80) % Lymph % (Auto) 8.6 L (10-50) % [place] % (Auto) 3.9 L (5-15) % Eos % (Auto) 0 (0-8) % Baso % (Auto) 0.2 (0-1) % Immature Gran # (Auto) 0.03 10*3/UL Neut # (Auto) 8.83 10*3/UL Lymph # (Auto) 0.87 10*3/uL [place] # (Auto) 0.40 (0.3-0.8) 10*3/UL Eos # (Auto) 0 10*3/UL Baso # (Auto) 0.02 10*3/UL WBC Morphology Comment Normal morphology (NORM) Plt Morphology Comment Normal morphology (NORM) RBC Morph Comment Normal morphology (NORM) D-Dimer (0.00-0.59) mg/L ABG pH 7.40 (7.35-7.45) ABG pCO2 38 (34-38) MMHG ABG pO2 71 (65-75) MMHG ABG HCO3 24 (22-26) ABG Total CO2 25 (23-27) MMOL/L ABG O2 Saturation 95 (90-100) % ABG Base Excess -1 (-2-2) MMOL/L Carlos Test Poss VBG pH (7.32-7.42) VBG pCO2 (45-55) mmHg VBG HCO3 (22-26) mmol/L VBG Base Excess (-2-2) MMOL/L FiO2 30% Sodium 139 (135-145) meq/L Potassium 4.4 (3.8-5.2) meq/L Chloride 100 (98-112) meq/L Carbon Dioxide 27 (23-33) meq/L Anion Gap 12 (5-20) BUN 16 (7-22) mg/dL Creatinine 0.8 (0.50-1.20) mg/dL Estimated GFR > 60 (>60 ml/min/1.73m(2)) BUN/Creatinine Ratio 20.00 (6-20) Glucose 238 H (78-110) mg/dL Calculated Osmolality 296.0 H (267-292) mOsm/kg Lactic Acid (0.70-2.10) MMOL/L Calcium 9.2 (8.7-10.7) mg/dL Magnesium (1.6-2.4) mg/dL Total Bilirubin (0.3-1.2) mg/dL AST (8-39) IU/L ALT (9-52) IU/L Alkaline Phosphatase (38-126) IU/L Troponin I (< 0.040) ng/mL C-Reactive Protein (0.0-0.9) mg/dL NT-Pro-B Natriuret Pep (0-125) PG/ML Total Protein (6.1-8.0) g/dL Albumin (3.5-4.8) g/dL Globulin (2.50-4.10) g/dL Albumin/Globulin Ratio (1.3-2.0) mg/g - Imaging CT Scan Status: Image Reviewed by Me (There is a right middle lobe pneumonia. There is also some honeycombing and signs of emphysema) Objective : Exam - General General Appearance: No Acute Distress, Cooperative Additional General Exam Details: Vital Signs - Last Taken Temperature 99.8 F H 11/12/17 16:00 Pulse Rate 83 11/12/17 17:00 Respiratory Rate 24 11/12/17 17:00 Blood Pressure 166/64 11/12/17 17:00 Pulse Ox 95 11/12/17 17:00 - Eye Eye Exam: No Scleral Icterus - ENT ENT Exam: Mucous Membranes Moist - Respiratory Respiratory Exam: Breathing Non Labored, Decreased Breath Sounds, Crackles, Coarse Breath Sounds - Cardiovascular Cardiovascular Exam: RRR, No Murmur, No Clicks, No Gallops, No Rubs, No JVD - GI/Abdominal GI/Abdominal Exam: Normal Bowel Sounds, Non Tender, Non Distended, Soft - Extremities Extremities Exam: No Clubbing Present, No Edema Present, No Cyanosis Present - Neurological Neurological Exam: Alert, Oriented x 3, No Facial Droop, Speech Intact / Clear, Moves All Extremities Equally Assessment and Plan - Patient Problems (1) Acute on chronic respiratory failure with hypoxemia Current Visit: Yes Status: Acute Code(s): J96.21 - Acute and chronic respiratory failure with hypoxia (2) COPD exacerbation Current Visit: Yes Status: Acute Code(s): J44.1 - Chronic obstructive pulmonary disease with (acute) exacerbation (3) Pneumonia Current Visit: Yes Status: Acute Code(s): J18.9 - Pneumonia, unspecified organism Qualifiers: Pneumonia type: due to unspecified organism Laterality: right Lung location: middle lobe of lung Qualified Code(s): J18.1 - Lobar pneumonia, unspecified organism (4) Pulmonary fibrosis Current Visit: Yes Status: Acute Code(s): J84.10 - Pulmonary fibrosis, unspecified (5) Coronary artery disease Current Visit: Yes Status: Chronic Code(s): I25.10 - Atherosclerotic heart disease of [place] coronary artery without angina pectoris Qualifiers: Coronary Disease-Associated Artery/Lesion type: [place] artery [place] vs. transplanted heart: [place] heart Associated angina: without angina Qualified Code(s): I25.10 - Atherosclerotic heart disease of [place] coronary artery without angina pectoris (6) Urinary incontinence Current Visit: Yes Status: Chronic Code(s): R32 - Unspecified urinary incontinence Qualifiers: Urinary Incontinence type: unspecified incontinence Qualified Code(s): R32 - Unspecified urinary incontinence (7) Hypercholesterolemia Current Visit: Yes Status: Chronic Code(s): E78.00 - Pure hypercholesterolemia, unspecified (8) Diabetes mellitus type II, controlled Current Visit: Yes Status: Acute Code(s): E11.9 - Type 2 diabetes mellitus without complications Qualifiers: Diabetes mellitus complication status: without complication Diabetes mellitus chcf insulin use: without ferry terminal supervisor use Qualified Code(s): E11.9 - Type 2 diabetes mellitus without complications - Assessment / Plan Additional Assessment/Plan Details: Better today, but still tenuous. Requiring BiPAP because of work of breathing more than anything and hypoxemia. Continue Levaquin. For now, continue steroids. I think they are having some effect as there is significantly less wheezing today. On oxygen for meals and then on BiPAP. Repeat venous blood gas tomorrow. Patient with still overall benefit from outpatient evaluation with [facility], but if not significantly better in the next 1-2 days, consideration for transfer for further evaluation of the pulmonary fibrosis in the setting of this pneumonia would make some sense from a pulmonary perspective. I think it is more progressive on the CT scan personally discussed with patient and . Also discussed with sister and they all agreed.
[2017-11-12] MEDS: Oxybutynin ER Tab 5 MG TAB PO SCH ×2 (19:30→21:30)
[2017-11-12] MEDS ORDERED: Rosuvastatin Tab 20 MG TAB PO SCH ×2 (21:00)
[2017-11-13] MEDS: methylPREDNISolone 125 MG/2 ML VIAL IVP SCH ×3 (02:11→14:25)
[2017-11-13] MEDS: NORMAL SALINE 10 ML SYRINGE FLUSH IVP PRN ×3 (02:11→14:25)
[2017-11-13 05:09] LABS: Hematocrit [HCT] 35.8 % (37.0-47.0); Hemoglobin [HGB] 11.8 g/dL (12.0-16.0); MEAN CORPUSCULAR HEMOGLOBIN 29.9 PG (27-31); MEAN CORPUSCULAR VOLUME 90.6 FL (81-99); MEAN PLATELET VOLUME 9.6 FL (7.4-12.2); RED BLOOD COUNT 3.95 10^6/uL (4.20-5.40)
[2017-11-13 05:18] LABS: ABG BASE EXCESS 0 MMOL/L (-2-2); ABG OXYGEN SATURATION 95 % (90-100); ABG PCO2 39 MMHG (34-38); ABG PH 7.41 (7.35-7.45); ABG PO2 72 MMHG (65-75); ALLEN TEST Y; COLLECTION SITE L Rad X1
[2017-11-13 05:20] LABS: BLOOD UREA NITROGEN 24 mg/dL (7-22); SERUM ALBUMIN 4.1 g/dL (3.5-4.8)
[2017-11-13 06:08] LABS: PLATELET MORPHOLOGY COMMENT NORMAL MORPHOLOGY (NORM); RBC MORPHOLOGY COMMENT NORMAL MORPHOLOGY (NORM); WBC MORPHOLOGY COMMENT SEE COMMENTS (NORM)
[2017-11-13 06:09] LABS: BAND NEUTROPHILS % 16 % (0-10); BASOPHILS % (MANUAL) 0 % (0-1); EOSINOPHILS % (MANUAL) 0 % (0-8); MONOCYTES % (MANUAL) 4 % (0-12); NEUTROPHILS % (MANUAL) 74 % (50-80)
[2017-11-13] MEDS: Insulin Lispro Flexpen 300 UNIT/3 ML INSULN.PEN SUBCUT SCH ×2 (07:23→11:20)
[2017-11-13] MEDS: IPRATROPIUM/ALBUTEROL SULFATE 3 ML NEB NEB SCH ×3 (07:25→14:35)
[2017-11-13] MEDS: CHOLECALCIFEROL 1000 IU TABLET PO SCH (08:00)
[2017-11-13] MEDS: ASPIRIN 81 MG (BABY) CHEWABLE TABLET PO SCH (08:00)
[2017-11-13] MEDS: LOSARTAN 25 MG TABLET PO SCH (08:00)
[2017-11-13] MEDS: ENOXAPARIN SODIUM 40 MG/0.4 ML SYRINGE SUBCUT SCH (08:00)
[2017-11-13] MEDS: Metoprolol TARTRATE Tab 50 MG TAB PO SCH (08:00)
[2017-11-13] MEDS: Levofloxacin (Premix) 750 MG/150 ML PIGGYBACK IV SCH (08:01)
[2017-11-13] MEDS: Pantoprazole Inj 40 MG in Normal Saline Flush 10 ML IVP SCH (08:01)
--- NOTE | 2017-11-13 13:33 | DCSUMMARY ---
Hospitalization Summary Hospital Course: Final Discharge Diagnosis: Current Visit Problems Problem Status Onset Code COPD exacerbation Acute J44.1 Pneumonia Acute J18.9 Pulmonary fibrosis Acute J84.10 Coronary artery disease Chronic I25.10 Urinary incontinence Chronic R32 Hypercholesterolemia Chronic E78.00 Diabetes mellitus type II, controlled Acute E11.9 Acute on chronic respiratory failure with hypoxemia Acute J96.21 Diagnostic Data, Laboratory Data, and Procedures of Signifigance: CT scan of the chest IMPRESSION: 1. No evidence of pulmonary embolus. 2. Centrilobular and paraseptal emphysema. 3. Subpleural fibrosis with honeycombing seen within the lower lobes in a UIP pattern. 4. Consolidation within the right middle lobe with moderate wall thickening and patchy areas of consolidation within the lower lobe with probable wall thickening. Findings likely represent an inflammatory/infectious process. Recommend short interval follow-up after appropriate treatment to demonstrate resolution. Abnormal Lab Results (Last 24 Hours) Range/Units 11/13/17 11/13/17 11/13/17 05:01 05:06 05:06 WBC (4.8-10.8) 10^3/uL 16.09 H RBC (4.20-5.40) 10^6/uL 3.95 L Hgb (12.0-16.0) g/dL 11.8 L Hct (37.0-47.0) % 35.8 L RDW Coeff of Sravani (11.5-14.5) % 14.8 H Band Neutrophils % (0-10) % 16 H Lymphocytes % (Manual) (10-50) % 6 L ABG pCO2 (34-38) MMHG 39 H BUN (7-22) mg/dL 24 H BUN/Creatinine Ratio (6-20) 30.00 H Glucose (78-110) mg/dL 224 H Calculated Osmolality (267-292) mOsm/kg 302.0 H AST (8-39) IU/L 54 H Albumin/Globulin Ratio (1.3-2.0) mg/g 1.20 L History and Physical pertinent to Admission: Past Medical History Medical History: 1. COPD. 2. Tobacco abuse, has abstained for the last month. 3. Pulmonary fibrosis. 4. Hypertension. 5. MT in 2004. 6. hyperlipidemia. 7. stress incontinence Surgical History: Bladder sling in 2007, colonoscopy in 2007, stents x3, hysterectomy, tonsillectomy, tubal ligation Pertinent Family History: Father of emphysema and mother of congestive heart failure Past Social History: Smokes one to 2 packs per day, , has children that are described as healthy although her son does have diabetes. 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 No alcohol. Tobacco Use: Former Smoker (Quit 1 month ago) Course of Hospitalization: Is a very nice 72-year-old female smoker recently admitted in September for COPD exacerbation comes back to the hospital admitted the for shortness of breath and what looks like possible pneumonia severe pulmonary fibrosis with honeycombing patient seems to be a BiPAP dependent after we take it off even a short while she gets extremely short of breath with the respirations in the 30s at this time shows she was stable enough to be transferred via helicopter to [facility] where I talk with an ICU physician Dr. Soto which agreed with the transfer and the patient needing most likely the specialty care with pulmonology and possible intimate intubation. Also spoke to the patient and the family which are very pleased and agreed with the transfer that been trying to get to the bottom of this for a long time now On the date of discharge, the patient was examined: Gen.: [No acute distress, alert, nontoxic] Heart: [Regular rate and rhythm, no murmurs, clicks, gallops, or rubs] Lungs: [Clear to auscultation bilaterally, patient is very short of breath if taken off of BiPAP and unable to speak in full sentences almost when taken off but she is pretty comfortable with the BiPAP on blood gases are okay Abdomen/GI : [Normal tones on auscultation, soft, nontender, nondistended] Musculoskeletal/extremities: [No clubbing, cyanosis, or edema] Vitals reviewed and are listed below Assessment and Plan: 1. As per discharge assessments above 2. Disposition: 3. Condition on discharge, stable and improved. 4. Diet: regular diet 5. Activities: resume normal activities 6. Follow-Up: 1. [PCP] 2. 7. Medications at the Time of Discharge: Home Medications Medication Instructions Recorded Confirmed Type albuterol sulfate HFA 90 2 inh INH Q6-8H PRN g 10/10/17 11/11/17 History mcg/actuation aerosol inhaler aspirin 81 mg chewable tablet 81 mg PO QDAY tab 10/10/17 11/11/17 History calcium carbonate 600 mg (1,500 1 tab PO BID tab 10/10/17 11/11/17 History mg)-vitamin D3 200 unit tablet cholecalciferol (vitamin D3) 1,000 1,000 unit PO QDAY #30 tab 10/10/17 11/11/17 History unit tablet fluticasone 500 mcg-salmeterol 50 1 inh INH BID ea 10/10/17 11/11/17 History mcg/dose blistr powdr for inhalation losartan 25 mg tablet 25 mg PO QDAY tab 10/10/17 11/11/17 History metoprolol tartrate 50 mg tablet 25 mg PO BID tab 10/10/17 11/11/17 History oxybutynin chloride 5 mg tablet 5 mg PO BID tab 10/10/17 11/11/17 History rosuvastatin 10 mg tablet 10 mg PO QPM #90 tab 10/10/17 11/11/17 Rx 3 Generic Name Dose Route Start Last Admin Trade Name Freq PRN Reason Stop Dose Admin Acetaminophen 650 mg 11/12/17 14:14 11/12/17 20:44 Tylenol PO 650 mg Q6H PRN Administration Pain Albuterol Sulfate 2.5 mg 11/11/17 23:06 11/13/17 02:22 Albuterol Neb Soln 0.083% NEB 2.5 mg RTQ2HR PRN Administration SOB, cough, wheeze Albuterol/Ipratropium 3 ml 11/12/17 07:00 11/13/17 10:41 Duoneb Neb Soln NEB 3 ml RTQID PETER Administration Aspirin 81 mg 11/12/17 09:00 11/13/17 08:00 Aspirin Chewable Tab PO 81 mg DAILY PETER Administration Cholecalciferol 1,000 iu 11/12/17 09:00 11/13/17 08:00 Vitamin D3 PO 1,000 iu DAILY PETER Administration Dextrose 30 - 40 ml 11/11/17 23:06 Dextrose 50% Inj IVP Q15M PRN BG < 70 unable to take oral Enoxaparin Sodium 40 mg 11/12/17 09:00 11/13/17 08:00 Lovenox Inj SUBCUT 40 mg DAILY PETER Administration Glucagon 1 mg 11/11/17 23:06 Glucagen IM ONCE PRN BG < 70 NPO & NO IV Glucose 15 - 20 gm 11/11/17 23:06 Insta-Glucose Gel PO Q15M PRN BG < 70 Levofloxacin/Dextrose 750 mg in 150 mls @ 150 mls/hr 11/12/17 09:00 11/13/17 08:01 Levaquin (Premix) IV 150 mls/hr DAILY PETER Administration Sodium Chloride 25 mls @ 200 mls/hr 11/11/17 23:06 11/13/17 08:01 Normal Saline 0.9% IV 200 mls/hr .Post Infusion PRN Administration No Primary IV for Flush ONLY Pantoprazole Sodium 40 mg/ 10 mls @ 5 mls/min 11/12/17 09:00 11/13/17 08:01 Sodium Chloride IVP 5 mls/min DAILY PETER Administration Insulin Human Lispro 0 - 14 unit 11/12/17 07:00 11/13/17 11:20 Humalog Flexpen Inj SUBCUT 8 unit AC HS PETER Administration Protocol Lidocaine HCl 0.5 ml 11/11/17 23:06 Lidocaine Buffered Inj SUBD ONCE PRN IV Starts Lidocaine HCl 10 ml 11/12/17 00:45 Xylocaine Uro-Ject 2% TOPICAL ONCE PRN Discomfort catheter insertion Losartan Potassium 25 mg 11/12/17 09:00 11/13/17 08:00 Cozaar PO 25 mg DAILY PETER Administration Methylprednisolone Sodium Succinate 125 mg 11/12/17 04:15 11/13/17 07:56 Solu-Medrol Inj IVP 125 mg Q6H PETER Administration Metoprolol Tartrate 25 mg 11/12/17 09:00 11/13/17 08:00 Lopressor Tab PO 25 mg BID PETER Administration Non-Formulary Medication 1 each 11/11/17 23:06 Insulin Sliding Scale Protocol SUBCUT .Per Protocol PRN Per Insulin Protocol Oxybutynin Chloride 5 mg 11/13/17 21:00 Ditropan Xl PO BEDTIME PETER Rosuvastatin Calcium 10 mg 11/12/17 21:00 11/12/17 20:44 Crestor PO 10 mg BEDTIME PETER Administration Sodium Chloride 5 - 20 ml 11/11/17 23:06 11/13/17 07:56 Saline Flush IVP 20 ml BID PRN Administration Flush 8. Time, care, counseling and coordination of care for this discharge is greater than 30 minutes. Exam - Vitals Vital Signs: Vital Signs Temperature 99.4 F Temperature Source Axillary Pulse Rate [Telemetry] 89 Pulse Rate [Apical] 100 Pulse Rate [Pulse Oximeter] 69 Pulse Rate 79 Respiratory Rate 22 Blood Pressure [Left Arm] 151/66 Blood Pressure 135/56 Pulse Ox 96 Oxygen Flow Rate 4 Oxygen Delivery Method Bi-PAP Height 5 ft 2 in Weight 175 lb 9.6 oz
[2017-11-13 14:40] VITALS: TEMP 98.9
[2017-11-13 16:35] VITALS: BP 152/63; RESP 24; O2SAT 97
[2017-11-13] MEDS ORDERED: AZITHROMYCIN 250 MG TABLET PO SCH (20:44)
[2017-11-13] MEDS ORDERED: Oxybutynin ER Tab 5 MG TAB PO SCH (21:00)
== END 2017-11-13 17:08 | disposition short-term general hospital (02) | DRG 190 ==
LOC: ER 19:18 → MED/SURG 21:02 → ICU 22:58
PROVIDERS: ADMIT Family Medicine; ATTEND Family Medicine

== ENCOUNTER 2018-03-03 09:21 | Inpatient (IN) ==
[2018-03-03] MEDS ORDERED: IPRATROPIUM/ALBUTEROL SULFATE 3 ML NEB NEB ONE (09:53)
[2018-03-03] MEDS ORDERED: NORMAL SALINE 10 ML SYRINGE FLUSH IVP PRN ×2 (09:53→13:34)
--- NOTE | 2018-03-03 10:07 | EKG ---
[address] [place] [address] Measurements Intervals [place] Rate: 58 P: -35 TN: 140 QRS: -19 QRSD: 97 T: -83 QT: 443 QTc: 440 Interpretive Statements SINUS BRADYCARDIA WITH OCCASIONAL SUPRAVENTRICULAR PREMATURE COMPLEXES LEFT VENTRICULAR HYPERTROPHY AND ST-T CHANGE POSSIBLE SEPTAL MYOCARDIAL INFARCTION, OF INDETERMINATE AGE POSSIBLE INFEROLATERAL ISCHEMIA Compared to ECG 02/16/2018 14:04:31 Left ventricular hypertrophy now present ST (T wave) deviation now present Sinus rhythm no longer present Myocardial infarct finding still present Electronically Signed On 03-03-18 12:21:34 MDT by Caleb Brewster [email or web address]
[2018-03-03 10:23] LABS: BASOPHILS # (AUTO) 0.05 10*3/UL; BASOPHILS % (AUTO) 0.6 % (0-1); EOSINOPHILS # (AUTO) 0.52 10*3/UL; Hematocrit [HCT] 38.6 % (37.0-47.0); Hemoglobin [HGB] 12.2 g/dL (12.0-16.0); LYMPHOCYTES # (AUTO) 1.78 10*3/uL; MEAN CORPUSCULAR HGB CONC 31.6 g/dL (33-37); MEAN CORPUSCULAR VOLUME 88.7 FL (81-99); MEAN PLATELET VOLUME 8.5 FL (7.4-12.2); MONOCYTES % (AUTO) 9.3 % (5-15); NEUTROPHILS # (AUTO) 5.44 10*3/UL; NEUTROPHILS % (AUTO) 63.3 % (50-80); PLATELET MORPHOLOGY COMMENT NORMAL MORPHOLOGY (NORM); RBC MORPHOLOGY COMMENT NORMAL MORPHOLOGY (NORM); RED BLOOD COUNT 4.35 10^6/uL (4.20-5.40); WBC MORPHOLOGY COMMENT NORMAL MORPHOLOGY (NORM)
[2018-03-03 10:26] LABS: VENOUS PCO2 35.5 mmHg (45-55); VENOUS PH 7.428 (7.32-7.42)
[2018-03-03 10:31] LABS: BLOOD UREA NITROGEN 15 mg/dL (7-22); BUN/CREATININE RATIO 18.75 (6-20); SERUM ALBUMIN 4.2 g/dL (3.5-4.8)
--- NOTE | 2018-03-03 10:59 | DI ---
Exam: FILM CXR Chest PA and lateral views INDICATION: Dyspnea COMPARISON: Chest exam radiograph 11/23/17 FINDINGS: There is diffuse reticular changes of the lung parenchyma more evident at the lung bases. In the right lateral midlung field there is a groundglass region of alveolar opacity. The cardiomediastinal silhouette is within normal limits. No pleural effusions. Bony elements are within normal limits for age. No acute osseous abnormality. IMPRESSION: Since prior examination there is diffuse reticular interstitial changes of the lung parenchyma. This can represent pneumonitis. Interstitial edema can be considered in the differential. In the right lateral midlung field there is a more focal alveolar airspace infiltrate. Correlate for pneumonia clinically. Heart size normal.
[2018-03-03] MEDS ORDERED: IPRATROPIUM/ALBUTEROL SULFATE 3 ML NEB NEB PRN (11:32)
[2018-03-03] MEDS ORDERED: ALBUTEROL SULFATE 2.5 MG/3 ML NEB PRN (11:32)
--- NOTE | 2018-03-03 12:16 | PDOC ---
Dyspnea HPI - General Chief Complaint: Dyspnea Stated Complaint: TROUBLE KEEPING OXYGEN UP Date Seen by Provider: 03/03/18 Time Seen by Provider: 09:40 Source: POSITIVE: Patient, Spouse, Other (Son) Exam Limitations: POSITIVE: No limitations Treatment Prior to Arrival: REPORTS: Oxygen Nurse's Notes Reviewed & Considered: Yes - History of Present Illness Initial Comments: The patient is a 72-year-old female who has a history of advancing interstitial lung disease. She sees a bogger operator at the [facility], Dr. Metz, as well as her creative writer here, Dr. Vidal. Patient complains of progressive dyspnea, especially on exertion for the past 2 weeks. She takes oxygen continuously by an oxygen concentrator. She states she measures her oxygen saturation by oximetry about 4 times a day. She states her SaO2's have been running "in the 70s to mid 80s". She states that with minimal exertion saturations declined considerably. Patient was seen here on 02/16/2018 for similar symptoms. At that time she had a CTA of the chest which showed no pulmonary emboli. There was pulmonary arterial hypertension and increased density of the lung parenchyma along with bullous emphysema. Juanita A and Juanita B lines. This study has been reviewed by her bogger operator at [facility] [place]. Last night the patient's son contacted her bogger operator, who advised the patient to be evaluated either here or at [facility] [place]. Patient has had some increased cough productive of mucoid sputum over the last several days. She denies any fevers or chest pain. Patient states that she was hospitalized at [facility] in [place] in November for one week. Patient stopped smoking in September 2017 and states she smoked one to 2 packs of cigarettes per day up until then. She states she had a myocardial infarction followed by coronary artery stenting 3. History of hypertension. History of hyperglycemia, exacerbated by steroid therapy. Body Location Affected: REPORTS: Chest Timing: REPORTS: Gradual, Getting Worse Duration: >1 week Severity: Moderate Quality: REPORTS: Other (Patient denies any pain anywhere) Initiating Event: DENIES: Upper Respiratory Illness, Out of Medications, Sports , Exercise, Aspiration, Choking, Allergy, Exposure - Smoke, Exposure - Mold, Exposure - Other Allergen Context: REPORTS: Exertion (Dyspnea most prominent on exertion) Exacerbated By: REPORTS: Exertion Associated Symptoms: DENIES: Fever, Chills, Sweating, Chest Pain, Chest Discomfort, Left Chest, Right Chest, Central Chest, Chest Heaviness, Chest Tightness, Painful Breathing, Radiation to Back, Radiation to Jaw, Radiation to Arm, Bloody Cough, Productive Cough, Heart Racing, Leg Pain, Calf Pain, Ankle Swelling, Leg Swelling, Dizziness, Light-Headedness, Anxiety, Tingling - Hands, Tingling - Face, Muscle Spasms - Hands, Muscle Spasms - Feet Similar Symptoms Previously: Yes Recently seen/treated/hospitalized: Yes Any Prior Injuries Related to Current Complaint?: No - Patient Home Medications Home Medications: Home Medications aspirin 81 mg chewable tablet 81 mg PO QDAY tab 10/10/17 losartan 25 mg tablet 25 mg PO QDAY tab 10/10/17 rosuvastatin 10 mg tablet 10 mg PO QPM #90 tab 10/10/17 benzonatate 100 mg capsule 100 mg PO TID PRN #30 cap 11/23/17 metoprolol tartrate 25 mg tablet 25 mg PO BID tab 12/18/17 oxybutynin chloride 5 mg tablet 5 mg PO QDAY tab 12/18/17 pirfenidone 267 mg capsule 3 tab PO TID cap 01/16/18 Blood Sugar Diagnostic [Assure Prism Multi] 0 unit .ROUTE .MEDSUPPLY 02/16/18 Ranitidine HCl 300 mg PO BEDTIME 03/03/18 - Patient Allergies Allergies/Adverse Reactions: Allergies 3 Allergy/AdvReac Type Severity Reaction Status Date / Time Penicillins Allergy HIVES Verified 03/03/18 09:27 Past Medical History - heen HEENT History: Cataracts Cardiovascular History: Previous OR Additional Cardiovasular History: STENTS X3 Respiratory History: Asthma, COPD, Pneumonia, Home Oxygen Use Additional Respiratory History: Chronic bronchitis Gastrointestinal History: GERD Additional Gastrointestinal History: occasional diarrhea/nausea/vomiting approx q 2-3 mo Genitourinary History: Denies History Endocrine History: Denies History Musculoskeletal History: Denies History Prosthesis or Implant: No Neurological History: Denies History Blood Disorders: Denies History Psychiatric History: Denies History History of Sexually Transmitted Diseases: No Female Reproductive History: Tubal Ligation, Hysterectomy Obstetrical History: Denies History Cancer History: Denies History In Past Year Been Physically Harmed or Verbally Threatened: No History of MDRO: No History of Other Communicable Diseases: No Tobacco Use: Former Smoker Alcohol Use: Rarely In the Past 12 Months, Have Used or Abuse Any Substance: None Previous Surgical History: No Type / Date of Surgery: HYSTERECTOMY WITH BLADDER SLING, CARDIAC STENTS X3, TUBAL, TONSILS Anesthesia Reactions: No Malignant Hyperthermia: No Significant Family History: No pertinent family hx Past Medical History Reviewed: Reviewed - No Changes ROS - Limitations ROS Limitations: No Limitations Constitution: REPORTS: Denies Symptoms Cardiovascular: REPORTS: Denies Cardiac Symptoms Respiratory: REPORTS: Cough Productive (Productive of mucoid sputum), Shortness Of Breath Neurological: REPORTS: Denies Neuro Symptoms Gastrointestinal: REPORTS: Denies GI Symptoms Endocrine: REPORTS: Denies Symptoms Musculoskeletal: REPORTS: Denies MS Symptoms Genitourinary: REPORTS: Denies Symptoms Eyes: REPORTS: Denies Symptoms ENT: REPORTS: Denies Symptoms Skin: REPORTS: Denies Skin Symptoms Lympathic: REPORTS: Denies Lympathic Symptoms Immunologic: POSITIVE: Denies Symptoms Psychiatric: POSITIVE: Denies Psych Symptoms Dyspnea Physical Exam - General Appearance General Appearance: REPORTS: Alert, Cooperative, No Evidence of Trauma, Mild Distress (2. Dyspnea). DENIES: No Acute Distress - HEENT HEENT: POSITIVE: Head Inspection Nml, Eyes Inspection Nml, Ears Inspection Nml, Nose Inspection Nml, Oral/Dental Inspect. Nml, Pharynx Inspect. Nml, PERRL, EOMI - Neck Neck: REPORTS: Normal Inspection, No Carotid Bruit - Respiratory Respiratory: REPORTS: No Pleuritic Chest Pain, Speaks Full Sentences, No Pain on Inspiration (Mild to moderate), Respiratory Distress, Rales (Diffuse rales and crackles), Decreased Air Movement. DENIES: No Respiratory Distress, Breath Sounds Normal, Fatigue, Wheezes, Rhonchi, Prolonged Expirations, Accessory Muscle Use, Retractions, Splinting, Dull on Percussion, Chest Wall Tenderness, Speaks Broken Sentences, Stridor, Respiratory Failure - Cardiovascular Cardiovascular: REPORTS: Regular Rate and Rhythm, Heart Sounds Normal, Equal Pulses, Strong Pulses, No Murmur, No Gallop, No Friction Rub, No JVD Peripheral Pulses: Radial (R): 2+, Radial (L): 2+ - Abdomen Abdomen: Soft: (All Quadrants), Normal Bowel Sounds: (All Quadrants), Denies Tenderness: (All Quadrants), No Splenomegaly: (All Quadrants), No Hepatomegaly: (All Quadrants), No Guarding: (All Quadrants), No Rebound: (All Quadrants), No Palpable Pulse: (All Quadrants), No Palpabale Mass: (All Quadrants), No Distention: (All Quadrants), No Rigidity: (All Quadrants) - Skin Skin: REPORTS: Intact, Normal For Race, Warm, Dry, No Rash - Extremities Extremity: Non-Tender: (All Extremities), Normal ROM: (All Extremities), Normal Inspection: (All Extremities) - Neurological / Psychological Neurological: POSITIVE: Affect Apporpriate, Oriented X3, 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 No pleural effusions. Lung disease has radiographically advanced since November. Radiologist states that pneumonitis and interstitial edema should be considered. The heart size is normal. Lab Results Reviewed by Me: Yes (troponin negative. BNP 603, blood cultures drawn.) CBC and BMP: 03/03/18 10:15 03/03/18 10:15 EKG Interpreted/Reviewed By Me:: Yes (T-wave inversions 2, 3, aVF and V3 through V6) EKG Interpretation:: POSITIVE: Normal Sinus Rhythm, Normal Rate, Normal Intervals, Normal QRS. NEGATIVE: Normal [place], Normal ST/T (T-wave inversions in leads 2, 3, aVF and V3 through V6; T-wave inversions in lead 2 and V3 are new in comparison with electrocardiogram done 02/16/2018.) - Patient's Progress Pain Medication Addressed: POSITIVE: Not Applicable School/Work Release Addressed: POSITIVE: Not Applicable Re-Examine Time: 11:00 Re-Examine Comment: Patient given a DuoNeb nebulizer treatment with equivocal effect. Case discussed with her bogger operator, Dr. Metz, at the [facility], who recommended a course of inpatient Solu-Medrol and possibly prophylactic antibiotics. He recommended Solu-Medrol at a dose of 500-1000 mg per day for 5 days. Patient has a history of hyperglycemia in response to steroids, which can be managed as an inpatient. Case discussed with Dr. Douglas, hospitalist. Status: POSITIVE: Unchanged, Re-Examined Air Movement: POSITIVE: Fair - Consult Consult (If Yes, Name of Consulting MD & Time Called): Yes (Dr. Metz, pulmonology; Dr. Douglas, hospitalist, [phone]) Consulting MD will see pt:: POSITIVE: [facility] Admit Counseled: POSITIVE: Patient, Family, RE: Lab Results, RE: Radiology Results, RE : DX, RE: Need for F/U Patient Care Time - Estimated PCT Patient Care Time (In Minutes): 60 Vital Signs - Recent Vital Signs Vital Signs: Vital Signs (Last 8 hours) Temp Pulse Pulse Resp BP BP Pulse Ox 03/03/18 11:52 97.8 F 60 24 111/64 94 03/03/18 11:50 98.1 F 69 122/65 92 03/03/18 10:35 67 20 95 03/03/18 10:34 58 L 20 95 03/03/18 09:40 97.4 F 71 28 H 138/63 89 - VS Reviewed Vital Signs Reviewed: Yes Discharge Clinical Impression: Pulmonary fibrosis, Diabetes mellitus type II, controlled, History of coronary artery disease, Elevated brain natriuretic peptide (BNP) level, ECG abnormal Condition: Fair Follow Up With: NORBERTO VIDAL [Primary Care Provider] - As Needed Date Decision to Admit to Inpatient: 03/03/18 Time Decision to Admit to Inpatient: 11:00
[2018-03-03] MEDS ORDERED: LIDOCAINE W/ SODIUM BICARB 0.5 ML SYR SUBD PRN (13:34)
[2018-03-03] MEDS ORDERED: ACETAMINOPHEN 325 MG TABLET PO PRN (13:34)
[2018-03-03] MEDS ORDERED: CALCIUM CARBONATE 500 MG (TUMS) CHEWABLE TABLET PO PRN (13:34)
[2018-03-03] MEDS ORDERED: DOCUSATE 100 MG CAPSULE PO PRN (13:34)
[2018-03-03] MEDS ORDERED: ONDANSETRON 4 MG/2 ML VIAL IVP PRN (13:34)
[2018-03-03] MEDS ORDERED: BENZONATATE 100 MG CAPSULE PO PRN (13:37)
--- NOTE | 2018-03-03 13:46 | PDOC ---
HPI - History of Present Illness Date of Service: 03/03/18 Time of Service: 13:41 Chief Complaint: Short of breath, worse History of Present Illness: This very pleasant 72-year-old female who has idiopathic pulmonate fibrosis that is progressively gotten worse since September 2017. She has had admissions here for COPD exacerbations/pulmonary fibrosis exacerbations and has visited with [facility] in [place]. She was placed on Esbriet (perfenidone) sometime in January, and she ran out after the end of January. Her pharmaceutical company supposed to send by mail order but was over 5 days before she could get it in on overnight delivery. She noted, along with her son, that she seemed to be a little worse off of this medication. The patient's son, Brenden, called [facility] to talk to Dr. Metz, the patient's machine sole leveler, who recommended that she come in for evaluation today. They do state that when she resumed her Esbriet, the patient seemed to be a little bit better. She seems to be doing better in terms of coughing up more phlegm and that has helped over the last week. She's not had any fevers, but has had chills. She's had severe shortness of breath with ambulation even with minimal activities and has had shortness of breath at rest. She did quit smoking in September. Her [facility] team would like her to have a machine sole leveler closer, but it's a two-month wait in the nearest town just to get initial appointment, so we may look at [facility] for outpatient lung follow-up. Dr. Metz recommended high-dose Solu- Medrol for 3 days, and based on today's chest x-ray, it may be that the patient even has an underlying infection, although it's most likely consistent with worsening pulmonary fibrosis. She does not have a high flow concentrator at home. She states to me that she is using her BiPAP at night. She is not sure what made her symptoms worse overall as she was told that likely being off of her pulmonary fibrosis medication did not make it worse, but she does note that it was temporally related. Past Medical History Medical History: 1. COPD. 2. Tobacco abuse, quit in September 2017. 3. Pulmonary fibrosis, idiopathic, worsening. 4. Hypertension. 5. NC in 2004. 6. hyperlipidemia. 7. stress incontinence Surgical History: Bladder sling in 2007, colonoscopy in 2007, stents x3, hysterectomy, tonsillectomy, tubal ligation Pertinent Family History: Father of emphysema and mother of congestive heart failure Past Social History: Used to smoke 2 packs per day but quit September 2017,, , has children that are described as healthy although her son does have diabetes. 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 No alcohol. Tobacco Use: Former Smoker In the Past 12 Months, Have Used or Abuse Any of the Following Substance: None Alcohol Use: None Medication / Allergies Home Medications: Home Medications 3 Medication Instructions Recorded Confirmed Type aspirin 81 mg chewable tablet 81 mg PO QDAY tab 10/10/17 03/03/18 History losartan 25 mg tablet 25 mg PO QDAY tab 10/10/17 03/03/18 History rosuvastatin 10 mg tablet 10 mg PO QPM #90 tab 10/10/17 03/03/18 Rx benzonatate 100 mg capsule 100 mg PO TID PRN #30 cap 11/23/17 03/03/18 Rx metoprolol tartrate 25 mg tablet 25 mg PO BID tab 12/18/17 03/03/18 History oxybutynin chloride 5 mg tablet 5 mg PO QDAY tab 12/18/17 03/03/18 History pirfenidone 267 mg capsule 3 tab PO TID cap 01/16/18 03/03/18 History Blood Sugar Diagnostic [Assure 0 unit .ROUTE .MEDSUPPLY 02/16/18 03/03/18 History Prism Multi] Ranitidine HCl 300 mg PO BEDTIME 03/03/18 03/03/18 History Allergies/Adverse Reactions: Allergies 3 Allergy/AdvReac Type Severity Reaction Status Date / Time Penicillins Allergy HIVES Verified 03/03/18 09:27 Review of Systems - Constitutional Constitutional: REPORTS: General Health Poor, Fever / Chills (Has chills but no fever), Fatigue - Respiratory Respiratory: REPORTS: Cough, Sputum, Dyspnea with Exertion, See HPI - Cardiovascular Cardiovascular: REPORTS: Negative System Review - Gastrointestinal Gastrointestinal / Abdominal: REPORTS: Heartburn (Frequent) - Genitourinary Genitourinary: REPORTS: Incontinence Exam - Vitals Vital Signs: Vital Signs Temperature 97.8 F Temperature Source Temporal Artery Scan Pulse Rate [Pulse Oximeter 69 Right] Pulse Rate 60 Respiratory Rate 24 Blood Pressure [Left Arm] 122/65 Blood Pressure 111/64 Pulse Ox 94 Oxygen Flow Rate 4 Oxygen Delivery Method Nasal Cannula Height 5 ft 2 in Weight 167 lb - General General Appearance: No Acute Distress, Cooperative - Head Head Exam: Normal Inspection, Normocephalic, Atraumatic - Eye Eye Exam: POSITIVE: No Scleral Icterus - ENT ENT Exam: POSITIVE: Mucous Membranes Moist - Neck Neck Exam: Normal Inspection, No Tenderness, No Lymphadenopathy, No Thyromegaly , JVP is not Raised - Respiratory Respiratory Exam: POSITIVE: Normal To Percussion, Normal to Percussion and Palpation, Crackles, Coarse Breath Sounds - Cardiovascular Cardiovascular Exam: POSITIVE: RRR, No Murmur, No Clicks, No Gallops, No Rubs, No JVD - GI/Abdominal GI/Abdominal Exam: POSITIVE: Normal Bowel Sounds, Non Tender, Non Distended, Soft - Rectal Rectal Exam: POSITIVE: Deferred - External Exam: POSITIVE: Deferred Exam: POSITIVE: Deferred - Extremities Extremities Exam: POSITIVE: No Edema Present, No Cyanosis Present, Clubbing Present - Back Back Exam: POSITIVE: No CVA Tenderness - Neurological Neurological Exam: POSITIVE: Alert, Oriented x 3, No Facial Droop, Speech Intact / Clear, Moves All Extremities Equally - Psychiatric Psychiatric Exam: POSITIVE: Anxious Results - Labs CBC and BMP: 03/03/18 10:15 03/03/18 10:15 Additional Lab Results: Laboratory Results 03/03/18 03/03/18 03/03/18 Range/Units 10:15 10:15 10:15 WBC 8.60 (4.8-10.8) 10^3/uL RBC 4.35 (4.20-5.40) 10^6/uL Hgb 12.2 (12.0-16.0) g/dL Hct 38.6 (37.0-47.0) % MCV 88.7 (81-99) FL MCH 28.0 (27-31) PG MCHC 31.6 L (33-37) g/dL RDW Std Deviation 41.6 (39-50) fL RDW Coeff of Sravani 13.1 (11.5-14.5) % Plt Count 281 (140-350) 10*3/uL MPV 8.5 (7.4-12.2) FL Immature Gran % (Auto) 0.1 (0-5) % Neut % (Auto) 63.3 (50-80) % Lymph % (Auto) 20.7 (10-50) % [place] % (Auto) 9.3 (5-15) % Eos % (Auto) 6.0 (0-8) % Baso % (Auto) 0.6 (0-1) % Immature Gran # (Auto) 0.01 10*3/UL Neut # (Auto) 5.44 10*3/UL Lymph # (Auto) 1.78 10*3/uL Grayson # (Auto) 0.80 (0.3-0.8) 10*3/UL Eos # (Auto) 0.52 10*3/UL Baso # (Auto) 0.05 10*3/UL WBC Morphology Comment Normal morphology (NORM) Plt Morphology Comment Normal morphology (NORM) RBC Morph Comment Normal morphology (NORM) VBG pH 7.428 H (7.32-7.42) VBG pCO2 35.5 L (45-55) mmHg VBG HCO3 23.5 (22-26) mmol/L VBG Base Excess -1 (-2-2) MMOL/L Sodium (135-145) meq/L Potassium (3.8-5.2) meq/L Chloride (98-112) meq/L Carbon Dioxide (23-33) meq/L Anion Gap (5-20) BUN (7-22) mg/dL Creatinine (0.50-1.20) mg/dL Estimated GFR (>60 ml/min/1.73m(2)) BUN/Creatinine Ratio (6-20) Glucose (78-110) mg/dL Calculated Osmolality (267-292) mOsm/kg Lactic Acid (0.70-2.10) MMOL/L Calcium (8.7-10.7) mg/dL Total Bilirubin (0.3-1.2) mg/dL AST (8-39) IU/L ALT (9-52) IU/L Alkaline Phosphatase (38-126) IU/L Troponin I (< 0.040) ng/mL NT-Pro-B Natriuret Pep 603 H (0-125) PG/ML Total Protein (6.1-8.0) g/dL Albumin (3.5-4.8) g/dL Globulin (2.50-4.10) g/dL Albumin/Globulin Ratio (1.3-2.0) mg/g 03/03/18 03/03/18 03/03/18 Range/Units 10:15 10:15 10:15 WBC (4.8-10.8) 10^3/uL RBC (4.20-5.40) 10^6/uL Hgb (12.0-16.0) g/dL Hct (37.0-47.0) % MCV (81-99) FL MCH (27-31) PG MCHC (33-37) g/dL RDW Std Deviation (39-50) fL RDW Coeff of Sravani (11.5-14.5) % Plt Count (140-350) 10*3/uL MPV (7.4-12.2) FL Immature Gran % (Auto) (0-5) % Neut % (Auto) (50-80) % Lymph % (Auto) (10-50) % [place] % (Auto) (5-15) % Eos % (Auto) (0-8) % Baso % (Auto) (0-1) % Immature Gran # (Auto) 10*3/UL Neut # (Auto) 10*3/UL Lymph # (Auto) 10*3/uL [place] # (Auto) (0.3-0.8) 10*3/UL Eos # (Auto) 10*3/UL Baso # (Auto) 10*3/UL WBC Morphology Comment (NORM) Plt Morphology Comment (NORM) RBC Morph Comment (NORM) VBG pH (7.32-7.42) VBG pCO2 (45-55) mmHg VBG HCO3 (22-26) mmol/L VBG Base Excess (-2-2) MMOL/L Sodium 142 (135-145) meq/L Potassium 4.2 (3.8-5.2) meq/L Chloride 102 (98-112) meq/L Carbon Dioxide 26 (23-33) meq/L Anion Gap 14 (5-20) BUN 15 (7-22) mg/dL Creatinine 0.8 (0.50-1.20) mg/dL Estimated GFR > 60 (>60 ml/min/1.73m(2)) BUN/Creatinine Ratio 18.75 (6-20) Glucose 158 H (78-110) mg/dL Calculated Osmolality 297.0 H (267-292) mOsm/kg Lactic Acid 1.7 (0.70-2.10) MMOL/L Calcium 9.5 (8.7-10.7) mg/dL Total Bilirubin 0.2 L (0.3-1.2) mg/dL AST 22 (8-39) IU/L ALT 21 (9-52) IU/L Alkaline Phosphatase 60 (38-126) IU/L Troponin I < 0.012 (< 0.040) ng/mL NT-Pro-B Natriuret Pep (0-125) PG/ML Total Protein 7.2 (6.1-8.0) g/dL Albumin 4.2 (3.5-4.8) g/dL Globulin 3.1 (2.50-4.10) g/dL Albumin/Globulin Ratio 1.30 (1.3-2.0) mg/g - EKG Data -: EKG Interpreted by Me Rate: Normal EKG Shows Normal: Sinus Rhythm - EKG Data When Compared to Previous EKG(s) There Are: No Significant Change EKG Interpretation: Nonspecific ST-T Wave Changes (T-wave inversions in inferior leads and precordial. Unchanged from prior EKG.) - Imaging Status: Image Reviewed by Me (Chest x-ray, on my view, shows increasing pulmonary fibrosis and worsened findings in the right middle and upper lobes.) Assessment and Plan - Patient Problems (1) Pulmonary fibrosis Current Visit: Yes Status: Chronic Code(s): J84.10 - Pulmonary fibrosis, unspecified (2) Benign hypertension Current Visit: Yes Status: Chronic (3) Vitamin D deficiency Current Visit: Yes Status: Chronic Onset Date: 11/15/12 Code(s): E55.9 - Vitamin D deficiency, unspecified (4) GERD (gastroesophageal reflux disease) Current Visit: Yes Status: Acute Onset Date: 11/15/12 Code(s): K21.9 - Gastro-esophageal reflux disease without esophagitis Qualifiers: Esophagitis presence: esophagitis presence not specified Qualified Code(s) : K21.9 - Gastro-esophageal reflux disease without esophagitis (5) Coronary artery disease Current Visit: Yes Status: Chronic Code(s): I25.10 - Atherosclerotic heart disease of [place] coronary artery without angina pectoris Qualifiers: Coronary Disease-Associated Artery/Lesion type: [place] artery [place] vs. transplanted heart: [place] heart Associated angina: without angina Qualified Code(s): I25.10 - Atherosclerotic heart disease of [place] coronary artery without angina pectoris (6) Hypercholesterolemia Current Visit: Yes Status: Chronic Code(s): E78.00 - Pure hypercholesterolemia, unspecified (7) Diabetes mellitus type II, controlled Current Visit: Yes Status: Chronic Code(s): E11.9 - Type 2 diabetes mellitus without complications Qualifiers: Diabetes mellitus senior care insulin use: without supervisor personnel clerks use Diabetes mellitus complication status: without complication Qualified Code(s): E11.9 - Type 2 diabetes mellitus without complications - Assessment / Plan Additional Assessment/Plan Details: This 72-year-old with acute worsening of her pulmonary fibrosis symptoms with idiopathic pulmonary fibrosis. She has chronic hypoxemic respiratory failure. Her symptoms are getting worse at rest and with activities. Admit and treat with steroids and antibiotics. Will do high-dose steroids. I put a call in to Dr. Metz at [phone]. I think in addition to high-dose steroids, the patient would benefit from antibiotics most likely with pseudomonal coverage so I'll use Levaquin. DuoNeb's and albuterol treatments. BiPAP at night. Try to arrange for high flow concentrator at home with 6 L at rest and as much as 10 L with activities. We will not be able to arrange a local pulmonary consultation in the office. I tried this several times and just cannot get patient in for an initial evaluation and less than 2-3 months but we may explore [facility] for an outpatient pulmonary management as well. We will explore this on Monday. We'll try to keep the patient here, but if she acutely worsens, we may need to consider shipping to [facility] in [place]. Patient's CODE STATUS is DO NOT RESUSCITATE. This is in reference to cardiac arrest only. Her and her family tell me specifically if she had any problems relating she would want to be put on a ventilator. Insulin and blood sugar checks. Plan above was discussed with patient and her son and her and they all agreed.
[2018-03-03] MEDS ORDERED: Levofloxacin (Premix) 750 MG/150 ML PIGGYBACK IV SCH (14:00)
[2018-03-03] MEDS ORDERED: SODIUM CHLORIDE 0.9% IV SCH (14:00)
[2018-03-03] MEDS ORDERED: METHYLPREDNISOLONE SUCC IV SCH (14:00)
[2018-03-03] MEDS: ASPIRIN 81 MG (BABY) CHEWABLE TABLET PO SCH (14:52)
[2018-03-03] MEDS ORDERED: PIRFENIDONE 267 MG PO SCH ×2 (15:00→19:00)
[2018-03-03] MEDS: LOSARTAN 25 MG TABLET PO SCH (15:00)
[2018-03-03] MEDS: Levofloxacin (Premix) 750 MG/150 ML PIGGYBACK IV SCH (15:42)
[2018-03-03] MEDS ORDERED: DEXTROSE 31 GM GEL PO PRN (15:47)
[2018-03-03] MEDS ORDERED: Insulin Sliding Scale Protocol SUBCUT PRN (15:47)
[2018-03-03] MEDS ORDERED: DEXTROSE 50%-WATER SYRINGE 50 ML SYRINGE IVP PRN (15:47)
[2018-03-03] MEDS ORDERED: Glucagon Inj Vial 1 MG/ML VIAL IM PRN (15:47)
[2018-03-03] MEDS: Insulin Lispro Flexpen 300 UNIT/3 ML INSULN.PEN SUBCUT SCH ×2 (16:43→21:06)
[2018-03-03] MEDS: METHYLPREDNISOLONE SUCC IV SCH (16:59)
[2018-03-03] MEDS: SODIUM CHLORIDE 0.9% IV SCH (16:59)
[2018-03-03] MEDS: PIRFENIDONE PO SCH (19:52)
[2018-03-03] MEDS: Rosuvastatin Tab 20 MG TAB PO SCH (21:02)
[2018-03-03] MEDS: Metoprolol TARTRATE Tab 25 MG TAB PO SCH (21:02)
[2018-03-03] MEDS: Insulin Glargine SoloStar Inj 100 UNIT/ML INSULN.PEN SUBCUT SCH (21:04)
[2018-03-04 06:45] LABS: BASOPHILS # (AUTO) 0.01 10*3/UL; BASOPHILS % (AUTO) 0.2 % (0-1); EOSINOPHILS # (AUTO) 0.01 10*3/UL; EOSINOPHILS % (AUTO) 0.2 % (0-8); Hematocrit [HCT] 36.4 % (37.0-47.0); Hemoglobin [HGB] 11.8 g/dL (12.0-16.0); LYMPHOCYTES # (AUTO) 1.07 10*3/uL; MEAN CORPUSCULAR HGB CONC 32.4 g/dL (33-37); MEAN CORPUSCULAR VOLUME 86.5 FL (81-99); MEAN PLATELET VOLUME 8.7 FL (7.4-12.2); MONOCYTES % (AUTO) 1.8 % (5-15); NEUTROPHILS # (AUTO) 4.39 10*3/UL; NEUTROPHILS % (AUTO) 78.5 % (50-80); RED BLOOD COUNT 4.21 10^6/uL (4.20-5.40)
[2018-03-04 06:50] LABS: PLATELET MORPHOLOGY COMMENT NORMAL MORPHOLOGY (NORM); RBC MORPHOLOGY COMMENT NORMAL MORPHOLOGY (NORM); WBC MORPHOLOGY COMMENT NORMAL MORPHOLOGY (NORM)
[2018-03-04 07:04] LABS: BLOOD UREA NITROGEN 18 mg/dL (7-22); BUN/CREATININE RATIO 25.71 (6-20); SERUM ALBUMIN 4.1 g/dL (3.5-4.8)
[2018-03-04] MEDS: Insulin Lispro Flexpen 300 UNIT/3 ML INSULN.PEN SUBCUT SCH ×3 (07:11→21:01)
[2018-03-04] MEDS: PIRFENIDONE PO SCH ×3 (07:11→21:02)
[2018-03-04] MEDS ORDERED: ENOXAPARIN SODIUM 40 MG/0.4 ML SYRINGE SUBCUT SCH (09:00)
[2018-03-04 09:18] LABS: VENOUS PH 7.44 (7.32-7.42)
[2018-03-04] MEDS: ASPIRIN 81 MG (BABY) CHEWABLE TABLET PO SCH (09:39)
[2018-03-04] MEDS: Pantoprazole Inj 40 MG in Normal Saline Flush 10 ML IVP SCH (09:40)
[2018-03-04] MEDS: LOSARTAN 25 MG TABLET PO SCH (09:40)
[2018-03-04] MEDS: Metoprolol TARTRATE Tab 25 MG TAB PO SCH ×2 (09:42→21:03)
[2018-03-04] MEDS: Oxybutynin ER Tab 5 MG TAB PO SCH (13:03)
--- NOTE | 2018-03-04 13:30 | PDOC(PROG) ---
Interval History: Patient is doing about the same she has initiated her on the high-dose steroids recommended by powder core tester in [place]. No complaints at present time she does refuse Lovenox Objective : Data - Labs CBC and BMP: 03/04/18 06:12 03/04/18 06:12 Objective : Exam - General General Appearance: No Acute Distress - Respiratory Respiratory Exam: Decreased Breath Sounds, Crackles - Cardiovascular Cardiovascular Exam: RRR, No Murmur, No Clicks, No Gallops, No Rubs, PMI Non- Displaced - GI/Abdominal GI/Abdominal Exam: Normal Bowel Sounds, Non Tender, Non Distended, Soft, No Masses, No Hepatomegaly, No Splenomegaly, No Organomegaly - Extremities Extremities Exam: Normal Inspection, No Clubbing Present, No Edema Present, No Cyanosis Present Assessment and Plan - Patient Problems (1) Benign hypertension Current Visit: Yes Status: Chronic Comment: Stable at present time (2) Pulmonary fibrosis Current Visit: Yes Status: Chronic Comment: At the recommendations of her pulmonologists Dr. Chery in [place] high- dose steroids for 3 days if patient is not improving we'll transferred to the [facility] patient agrees and understands Code(s): J84.10 - Pulmonary fibrosis, unspecified (3) Coronary artery disease Current Visit: Yes Status: Chronic Code(s): I25.10 - Atherosclerotic heart disease of [place] coronary artery without angina pectoris Qualifiers: Coronary Disease-Associated Artery/Lesion type: [place] artery [place] vs. transplanted heart: [place] heart Associated angina: without angina Qualified Code(s): I25.10 - Atherosclerotic heart disease of [place] coronary artery without angina pectoris (4) Hypercholesterolemia Current Visit: Yes Status: Chronic Code(s): E78.00 - Pure hypercholesterolemia, unspecified (5) Diabetes mellitus type II, controlled Current Visit: Yes Status: Chronic Code(s): E11.9 - Type 2 diabetes mellitus without complications Qualifiers: Diabetes mellitus manager intermediate insulin use: without chcf use Diabetes mellitus complication status: without complication Qualified Code(s): E11.9 - Type 2 diabetes mellitus without complications (6) GERD (gastroesophageal reflux disease) Current Visit: Yes Status: Acute Onset Date: 11/15/12 Code(s): K21.9 - Gastro-esophageal reflux disease without esophagitis Qualifiers: Esophagitis presence: esophagitis presence not specified Qualified Code(s) : K21.9 - Gastro-esophageal reflux disease without esophagitis (7) Vitamin D deficiency Current Visit: Yes Status: Chronic Onset Date: 11/15/12 Code(s): E55.9 - Vitamin D deficiency, unspecified
[2018-03-04] MEDS: Levofloxacin (Premix) 750 MG/150 ML PIGGYBACK IV SCH (21:00)
[2018-03-04] MEDS: METHYLPREDNISOLONE SUCC IV SCH (21:02)
[2018-03-04] MEDS: SODIUM CHLORIDE 0.9% IV SCH (21:02)
[2018-03-04] MEDS: Insulin Glargine SoloStar Inj 100 UNIT/ML INSULN.PEN SUBCUT SCH (21:03)
[2018-03-04] MEDS: Rosuvastatin Tab 20 MG TAB PO SCH (21:03)
[2018-03-05 05:17] LABS: BLOOD UREA NITROGEN 22 mg/dL (7-22); BUN/CREATININE RATIO 31.42 (6-20)
[2018-03-05] MEDS: Insulin Lispro Flexpen 300 UNIT/3 ML INSULN.PEN SUBCUT SCH ×4 (07:06→21:35)
[2018-03-05] MEDS: PIRFENIDONE PO SCH ×5 (07:06→21:09)
[2018-03-05] MEDS: Metoprolol TARTRATE Tab 25 MG TAB PO SCH ×2 (08:09→21:33)
[2018-03-05] MEDS: Pantoprazole Inj 40 MG in Normal Saline Flush 10 ML IVP SCH (08:09)
[2018-03-05] MEDS: Oxybutynin ER Tab 5 MG TAB PO SCH (08:09)
[2018-03-05] MEDS: ASPIRIN 81 MG (BABY) CHEWABLE TABLET PO SCH (08:09)
[2018-03-05] MEDS: LOSARTAN 25 MG TABLET PO SCH (08:09)
--- NOTE | 2018-03-05 10:20 | PDOC(PROG) ---
Interval History: Patient is doing great she feels much better today she thinks that her therapy is working feels less short of breath Objective : Data - Labs CBC and BMP: 03/04/18 06:12 03/05/18 04:20 Objective : Exam - General General Appearance: Cooperative - Respiratory Additional Respiratory Exam Details: More air movement today few crackles improved since yesterday - Cardiovascular Cardiovascular Exam: RRR, No Murmur, No Clicks, No Gallops, No Rubs, PMI Non- Displaced - GI/Abdominal GI/Abdominal Exam: Normal Bowel Sounds, Non Tender, Non Distended, Soft, No Masses, No Hepatomegaly, No Splenomegaly, No Organomegaly Assessment and Plan - Patient Problems (1) Pulmonary fibrosis Current Visit: Yes Status: Chronic Comment: Exacerbation patient on high-dose steroids for 3 days as recommended by her claims adjudicator at [facility] patient thinks that therapy is working she is getting her third dose today if tomorrow she feels better she will be discharged home on a tapering dose of steroids possible pneumonia continue levofloxacin for a total of the 7 days Code(s): J84.10 - Pulmonary fibrosis, unspecified (2) Benign hypertension Current Visit: Yes Status: Chronic (3) Coronary artery disease Current Visit: Yes Status: Chronic Code(s): I25.10 - Atherosclerotic heart disease of [place] coronary artery without angina pectoris Qualifiers: Coronary Disease-Associated Artery/Lesion type: [place] artery [place] vs. transplanted heart: [place] heart Associated angina: without angina Qualified Code(s): I25.10 - Atherosclerotic heart disease of [place] coronary artery without angina pectoris (4) Hypercholesterolemia Current Visit: Yes Status: Chronic Code(s): E78.00 - Pure hypercholesterolemia, unspecified (5) Diabetes mellitus type II, controlled Current Visit: Yes Status: Chronic Comment: Sugars have remained controlled Code(s): E11.9 - Type 2 diabetes mellitus without complications Qualifiers: Diabetes mellitus shelter insulin use: without shelter use Diabetes mellitus complication status: without complication Qualified Code(s): E11.9 - Type 2 diabetes mellitus without complications (6) GERD (gastroesophageal reflux disease) Current Visit: Yes Status: Acute Onset Date: 11/15/12 Code(s): K21.9 - Gastro-esophageal reflux disease without esophagitis Qualifiers: Esophagitis presence: esophagitis presence not specified Qualified Code(s) : K21.9 - Gastro-esophageal reflux disease without esophagitis (7) Vitamin D deficiency Current Visit: Yes Status: Chronic Onset Date: 11/15/12 Code(s): E55.9 - Vitamin D deficiency, unspecified
[2018-03-05] MEDS: METHYLPREDNISOLONE SUCC IV SCH (16:09)
[2018-03-05] MEDS: SODIUM CHLORIDE 0.9% IV SCH (16:09)
[2018-03-05] MEDS: Rosuvastatin Tab 20 MG TAB PO SCH (21:34)
[2018-03-05] MEDS: Insulin Glargine SoloStar Inj 100 UNIT/ML INSULN.PEN SUBCUT SCH (21:34)
[2018-03-06 05:06] VITALS: TEMP 97.2
[2018-03-06] MEDS: Insulin Lispro Flexpen 300 UNIT/3 ML INSULN.PEN SUBCUT SCH (06:56)
[2018-03-06] MEDS: PIRFENIDONE PO SCH (06:56)
[2018-03-06 07:49] VITALS: BP 144/58; RESP 20; O2SAT 95
[2018-03-06] MEDS: Pantoprazole Inj 40 MG in Normal Saline Flush 10 ML IVP SCH (08:43)
[2018-03-06] MEDS: Oxybutynin ER Tab 5 MG TAB PO SCH (08:44)
[2018-03-06] MEDS: ASPIRIN 81 MG (BABY) CHEWABLE TABLET PO SCH (08:44)
[2018-03-06] MEDS: LOSARTAN 25 MG TABLET PO SCH (08:44)
[2018-03-06] MEDS: Metoprolol TARTRATE Tab 25 MG TAB PO SCH (08:44)
[2018-03-06] MEDS ORDERED: LEVOFLOXACIN 500 MG TABLET PO SCH (09:00)
--- NOTE | 2018-03-06 10:27 | DCSUMMARY ---
Hospitalization Summary Hospital Course: Final Discharge Diagnosis: Current Visit Problems Problem Status Onset Code Elevated brain natriuretic peptide (BNP) level Acute R79.89 ECG abnormal Acute R94.31 Benign hypertension Chronic Vitamin D deficiency Chronic 11/15/12 E55.9 GERD (gastroesophageal reflux disease) Acute 11/15/12 K21.9 History of coronary artery disease Chronic Z86.79 Pulmonary fibrosis Chronic J84.10 Coronary artery disease Chronic I25.10 Hypercholesterolemia Chronic E78.00 Diabetes mellitus type II, controlled Chronic E11.9 Diagnostic Data, Laboratory Data, and Procedures of Signifigance: History and Physical pertinent to Admission: Past Medical History Medical History: 1. COPD. 2. Tobacco abuse, quit in September 2017. 3. Pulmonary fibrosis, idiopathic, worsening. 4. Hypertension. 5. [place] in 2004. 6. hyperlipidemia. 7. stress incontinence Surgical History: Bladder sling in 2007, colonoscopy in 2007, stents x3, hysterectomy, tonsillectomy, tubal ligation Pertinent Family History: Father of emphysema and mother of congestive heart failure Past Social History: Used to smoke 2 packs per day but quit September 2017,, , has children that are described as healthy although her son does have diabetes. 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 No alcohol. Tobacco Use: Former Smoker Course of Hospitalization: This very nice 72-year-old female with idiopathic pulmonary fibrosis that is been getting worse since September 2017. Her latest admission was transferred in [place] and visited at [facility] she was placed on Esbriet by her senior interactive producer in [facility] in [place] she has not had this medication for 5 days and she thought she was a little bit worse off of it it took some time to get it through mail order her senior interactive producer is Dr. Metz who recommended the to be seen in the ER her senior interactive producer Dr. Metz recommended high-dose Solu-Medrol for 3 days of 1 g daily and if she would be better with this therapy she could be discharged home if at her baseline while the patient did very well she is back at her baseline on 4 L with ambulation going back and forth to the bathroom. She will be discharged with a high flow concentrator which will arrange for her and it is already at her house also she will call Dr. Metz for follow-up as she has decided to stick with the her senior interactive producer in [place] for follow-ups for her lung disease. She will be on 40 mg of prednisone for the next 5 days then off and will resume her usual home meds she will also be on Levaquin the 14 days for pneumonia. Case was discuss with nurses patient she is very pleased to be discharged home On the date of discharge, the patient was examined: Gen.: No acute distress, alert, nontoxic Heart: Regular rate and rhythm, no murmurs, clicks, gallops, or rubs Lungs: Good air movement, breathing is nonlabored few crackles Abdomen/GI: Normal tones on auscultation, soft, nontender, nondistended Musculoskeletal/extremities: No clubbing, cyanosis, or edema Vitals reviewed and are listed below Vital Signs (24 hrs) Temp Pulse Resp BP Pulse Ox 03/06/18 07:48 97.2 F 20 144/58 95 03/06/18 07:00 20 95 03/06/18 05:03 96 03/06/18 05:00 97.2 F 58 L 16 148/44 96 03/06/18 03:00 96 03/06/18 01:00 97.8 F 58 L 16 131/48 98 03/05/18 23:00 93 03/05/18 20:48 97.7 F 62 20 123/48 96 03/05/18 19:00 20 96 03/05/18 16:21 97.3 F 84 20 121/48 92 03/05/18 15:00 96 03/05/18 12:04 96.9 F 77 20 135/41 95 Assessment and Plan: 1. As per discharge assessments above 2. Disposition: Home 3. Condition on discharge, stable and improved. 4. Diet: regular diet 5. Activities: resume normal activities 6. Follow-Up: 1. PCP she will follow-up with Dr. [place] and her senior interactive producer Christoph delivered her high flow concentrator at home 2. 7. Medications at the Time of Discharge: Home Medications 3 Medication Instructions Recorded Confirmed Type aspirin 81 mg chewable tablet 81 mg PO QDAY tab 10/10/17 03/03/18 History rosuvastatin 10 mg tablet 10 mg PO QPM #90 tab 10/10/17 03/03/18 Rx benzonatate 100 mg capsule 100 mg PO TID PRN #30 cap 11/23/17 03/03/18 Rx metoprolol tartrate 25 mg tablet 25 mg PO BID tab 12/18/17 03/03/18 History oxybutynin chloride 5 mg tablet 5 mg PO QDAY tab 12/18/17 03/03/18 History pirfenidone 267 mg capsule 3 tab PO TID cap 01/16/18 03/03/18 History Blood Sugar Diagnostic [Assure 0 unit .ROUTE .MEDSUPPLY 02/16/18 03/03/18 History Prism Multi] Ranitidine HCl 300 mg PO BEDTIME 03/03/18 03/03/18 History losartan 25 mg tablet 25 mg PO QDAY #30 tab 03/05/18 Rx Acetaminophen [Tylenol] 650 mg PO Q6H PRN tab 03/06/18 Rx Insulin Glargine SoloStar Inj 5 unit SUBCUT BEDTIME insuln.pen 03/06/18 Rx [Lantus SoloStar Inj] Insulin Lispro Flexpen Inj 0 - 16 unit SUBCUT AC HS 03/06/18 Rx [HumaLOG Flexpen Inj] insuln.pen Levofloxacin [Levaquin] 750 mg PO DAILY #3 tab 03/06/18 Rx predniSONE Tab [Deltasone Tab] 20 mg PO BID #10 tab 03/06/18 Rx 8. Time, care, counseling and coordination of care for this discharge is greater than 30 minutes. 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 She has been told she is terminal with less than 6 months to live. Code(s): J84.10 - Pulmonary fibrosis, unspecified Category: Medical (2) Benign hypertension Current Visit: Yes Status: Chronic Category: Medical (3) Coronary artery disease Current Visit: Yes Status: Chronic Code(s): I25.10 - Atherosclerotic heart disease of [place] coronary artery without angina pectoris Qualifiers: Coronary Disease-Associated Artery/Lesion type: [place] artery [place] vs. transplanted heart: [place] heart Associated angina: without angina Qualified Code(s): I25.10 - Atherosclerotic heart disease of [place] coronary artery without angina pectoris Category: Medical (4) Hypercholesterolemia Current Visit: Yes Status: Chronic Code(s): E78.00 - Pure hypercholesterolemia, unspecified Category: Medical (5) Diabetes mellitus type II, controlled Current Visit: Yes Status: Chronic Code(s): E11.9 - Type 2 diabetes mellitus without complications Qualifiers: Diabetes mellitus tank terminal gauger insulin use: without correction use Diabetes mellitus complication status: without complication Qualified Code(s): E11.9 - Type 2 diabetes mellitus without complications Category: Medical (6) GERD (gastroesophageal reflux disease) Current Visit: Yes Status: Acute Onset Date: 11/15/12 Code(s): K21.9 - Gastro-esophageal reflux disease without esophagitis Qualifiers: Esophagitis presence: esophagitis presence not specified Qualified Code(s) : K21.9 - Gastro-esophageal reflux disease without esophagitis Category: Medical (7) Vitamin D deficiency Current Visit: Yes Status: Chronic Onset Date: 11/15/12 Code(s): E55.9 - Vitamin D deficiency, unspecified Category: Medical
== END 2018-03-06 11:52 | disposition home or self-care (01) | DRG 198 ==
LOC: ER 09:21 → MED/SURG 11:38
PROVIDERS: ADMIT Family Medicine; ATTEND Family Medicine